=== PATIENT | female | born 1985 | race Caucasian/White ===

== ENCOUNTER 2017-02-15 00:12 | Observation (INO) ==
[2017-02-15] MEDS ORDERED: Acetaminophen 325 MG TABLET PO PRN (02:30)
[2017-02-15] MEDS ORDERED: Ondansetron 4 MG/2 ML VIAL IVP PRN (02:30)
[2017-02-15] MEDS ORDERED: Naloxone 0.4 MG/ML INJ IVP PRN (02:30)
[2017-02-15] MEDS ORDERED: Haloperidol Lactate 5 MG/ML VIAL IVP PRN (02:33)
--- NOTE | 2017-02-15 02:45 | Internal Med History&Physical ---
<Gabe Perez - Last Filed: 02/15/17 03:04> Date of Encounter: 02/15/17 Time of Encounter: 02:35 Assessment and Plan (1) Altered mental status Current visit: No Status: Acute Patient presented with what appeared to be agitation and possibly acute psychosis. Patient has underlying schizophrenia and does not appear to be taking her medications. Etiology of the patient's symptoms likely include her underlying mental disorder exacerbated by amphetamine use as shown in her urine drug screen. Patient was given Haldol, Ativan, and Benadryl in the emergency department which sedated her sufficiently. We will hold off on any further sedating medicines and the patient's mental status can be evaluated. There is reports that she did say that she wanted to commit suicide so suicide precautions have been implemented. Patient will likely need psychiatric evaluation once her mental status and medical condition stabilizes. We will hold off on any further medications at this time until the patient's mental status can be further evaluated. Qualifiers: Altered mental status type: delirium Qualified Code(s): R41.0 - Disorientation, unspecified (2) Pneumonia Current visit: Yes Status: Acute Patient has evidence of bilateral pneumonia on chest x-ray. Unable to assess for symptoms at this time given the patient's mental status as discussed above. We will initiate Levaquin 750 mg daily. Given the history of antipsychotic use and Haldol given in the emergency department there is concern for multiple QT prolongation medications. EKG shows her QT is 393 in the emergency department. We will continue to monitor for any signs of QT prolongation. Qualifiers: Pneumonia type: due to unspecified organism Laterality: bilateral Lung location: unspecified part of lung Qualified Code(s): J18.9 - Pneumonia, unspecified organism (3) Schizophrenia Current visit: Yes Status: Acute Qualifiers: Schizophrenia type: unspecified Qualified Code(s): F20.9 - Schizophrenia, unspecified (4) Amphetamine intoxication Current visit: No Status: Acute Qualifiers: Complication of substance-induced condition: with delirium Qualified Code(s ): F15.121 - Other stimulant abuse with intoxication delirium (5) DVT prophylaxis Current visit: Yes Status: Acute Heparin 5000 units subcutaneous twice a day Internal Medicine - H&P: HPI Chief complaint: Agitation Admitted From: Emergency Dept Plans for Post Hospital Care: Home History of present illness: Ms. Chavez is a 31 year old female with history of schizophrenia and drug abuse presents with agitation. Patient is sedated at this time so history is obtained from the ER documentation. Per the records the mother stated that this evening the patient was shown agitated and running around the house and speaking incoherently. EMS reported that when they arrived the patient was extremely agitated and violent. Per the records the patient did state several times that she wanted to kill herself. Patient was agitated on arrival to the emergency department with constant tangential speech and intermittent violence. Patient was given 5 mg of Haldol, 2 mg of Ativan, 25 mg of diphenhydramine in the emergency department which adequately sedated her. Patient was sedated upon arrival to our facility and would not respond to verbal stimuli. She would make grunting noises and was able to squeeze my hand when asked but otherwise would not follow commands. Past Med Surg Social Fam HX - Past Medical History Medical history: other Psychiatric history: anxiety, depression, previous psychiatric hospitalization - Past Surgical History Surgical History: non-contributory (Unable to obtain in mental status) - Social History Smoking Status: Current every day smoker Smokeless Tobacco Status: No Alcohol use: none Drug use: methamphetamine - Additional Family History Additional family history: Unable to obtain due to mental status Internal Medicine - H&P: Meds Gabapentin [Neurontin] 300 mg PO TID 02/14/17 [History] HydrOXYzine Pamoate [Vistaril] 50 mg PO DAILY 02/14/17 [History] chlorproMAZINE [Thorazine] 50 mg PO HS 02/14/17 [History] Allergies codeine Allergy (Verified 02/14/17 21:49) See Comments haloperidol [From Haldol] Allergy (Verified 02/14/17 21:49) See Comments prednisone Allergy (Verified 02/14/17 21:48) See Comments ROS unobtainable: due to mental status All Systems PM: A 10-system review of systems was performed and is negative for pertinent findings except as documented above in the HPI. - Constitutional Vitals: Temp Pulse Resp BP Pulse Ox 97.7 F 89 20 111/89 98 02/15/17 02:23 02/15/17 02:23 02/15/17 02:23 02/15/17 02:23 02/15/17 02:23 Exam: Patient is sedated this time will not respond to my questions. She does not appear to be in any acute distress. - Head Head exam: Present: atraumatic, normal inspection, normocephalic - Eye Additional comments: Patient would not open her eyes and would not allow me to open her eyes. - ENT Additional comments: Patient would not open her mouth allow me to open her mouth. - Neck Neck exam general surgery: Present: full ROM - Respiratory Respiratory exam: Present: CTAB. Absent: rales, rhonchi, wheezes - Cardiovascular Cardiovascular exam: Present: RRR. Absent: gallop, rubs, systolic murmur, tachycardia - GI/Abdominal GI/Abdominal exam: Present: normal bowel sounds, soft. Absent: distended, tenderness - Extremities Exam Extremities exam: Present: warm. Absent: pedal edema, tenderness - Neurological Exam Additional comments: Patient would not respond to commands or participate in the exam. She would groan and move with verbal stimuli but would not follow commands. She is moving all 4 extremities spontaneously. - Skin Skin exam: Present: dry, intact, warm <Mudduluru,Madhusudha R - Last Filed: 02/15/17 06:33> Date of Encounter: 02/15/17 Assessment and Plan (1) Acute encephalopathy Current visit: Yes Status: Acute Acute Encephalopathy / Psychotic symptoms / agitation / suicidal thought: suspect due to her schizophrenia versus substance abuse. Will obtain psych consult. Suicide, seizure precautions Internal Medicine - H&P: HPI History of present illness: Ms. Chavez is a 31 year old female All Systems PM: A 10-system review of systems was performed and is negative for pertinent findings except as documented above in the HPI. - Constitutional Vitals: Temp Pulse Resp BP Pulse Ox 97.9 F 85 21 100/72 98 02/15/17 03:23 02/15/17 05:49 02/15/17 05:49 02/15/17 05:49 02/15/17 05:49 Internal Med - H&P Results - Labs CBC & Chem 7: 02/15/17 03:02 02/15/17 03:02 Labs: Short CBC 02/15/17 02/15/17 02/15/17 Range/Units 03:02 03:02 03:02 WBC 13.7 H (4.3-11.1) K/mcL RBC 3.46 L (3.82-4.97) M/mcL Hgb 9.9 L D (11.5-15.4) g/dL Hct 30.0 L (35.3-44.9) % MCV 86.7 (83.0-100.0) fL MCH 28.6 (28.0-33.3) pg MCHC 33.0 (31.6-35.5) g/dL RDW 13.0 (11.5-14.5) % Plt Count 258 (140-400) K/mcL MPV 9.7 (9.4-12.4) fL Immature Gran % 0.7 (0-4) % Seg Neutrophils % 66.6 % Lymphocytes % 25.7 % Monocytes % 5.8 % Eosinophils % 0.9 % Basophils % 0.3 % Neutrophils # 9.1 H (1.6-8.9) K/mcL Lymphocytes # 3.5 (0.6-4.6) K/mcL Monocytes # 0.8 (0.0-1.3) K/mcL Eosinophils # 0.1 (0.0-0.6) K/mcL Basophils # 0.0 (0.0-0.2) K/mcL Sodium 140 (136-145) mEq/L Potassium 3.6 (3.5-4.5) mEq/L Chloride 113 H (98-109) mEq/L Carbon Dioxide 22 (19-29) mEq/L BUN 10 (7-20) mg/dL Creatinine 0.77 (0.57-1.11) mg/dL Est GFR ( Amer) > 60 (> 60) Est GFR (Non-Af Amer) > 60 (> 60) BUN/Creatinine Ratio 13 (6-26) Glucose 92 (70-99) mg/dL Calculated Osmolality 289 (280-300) Lactic Acid 0.6 (0.5-2.2) mmol/L Calcium 7.8 L D (8.6-10.8) mg/dL Magnesium 1.6 (1.6-2.6) mg/dL BMP 02/15/17 03:02 Sodium 140 Potassium 3.6 Chloride 113 H Carbon Dioxide 22 BUN 10 Creatinine 0.77 Glucose 92 Calcium 7.8 L D - Attending Attestation I performed history and physical examination of the patient and discussed management with the Resident. I reviewed the Residents note and agree with documented findings and plan of care. 31 Y/F with h/o schizophrenia and drug abuse presented to the ER at [place] with agitation. Patient is sedated at this time and not able to provide history. I have reviewed ER documentation and I also discussed with the report at [place]. Per the ER provider pts mom stated that she (pt) was babbling she was running around the house and she (mom) could not control her. EMS agrees that when they arrived she was extremely agitated and fairly violent talking out of her head. she did say several times that she wanted to kill herself. Patient was given 5 mg of Haldol, 2 mg of Ativan, 25 mg of diphenhydramine in the emergency department. Patient was apparently hypertensive at presentation, but was hypotensive with BP of 84/59 subsequently. She was IV fluid bolus in the ER. CXR reported multifocal bilateral airspace disease compatible with pneumonia. (On my personal review of the CXR - I am not convinced of pneumonia). O/E: Patient is not responsive to verbal stimuli. Maintaining airway. Lungs clear to auscultation. Cardiac regular rate and rhythm. EKG personally reviewed by me shows sinus tachycardia. QTC 392 ms. Labs reviewed and shows white cell count of 17.1. Urine tox screen is positive for amphetamines and benzodiazepines. A/P: Suspected bilateral pneumonia: Treat with levofloxacin. Acute Encephalopathy / Psychotic symptoms / agitation / suicidal thought: suspect due to her schizophrenia versus substance abuse. Will obtain psych consult. Suicide, seizure precautions
[2017-02-15] MEDS: 0.9 % Sodium Chloride 1,000 ML IVC SCH ×3 (02:58→21:39)
[2017-02-15] MEDS ORDERED: *HR* LORazepam 2 MG/ML VIAL IVP PRN ×2 (03:04→06:13)
[2017-02-15 03:18] LABS: Basophils % 0.3 %; Eosinophils # 0.1 K/mcL (0.0-0.6); Eosinophils % 0.9 %; Hemoglobin 9.9 g/dL (11.5-15.4); Immature Granulocytes % 0.7 % (0-4); Lymphocytes # 3.5 K/mcL (0.6-4.6); Lymphocytes % 25.7 %; Mean Corpuscular Hemoglobin 28.6 pg (28.0-33.3); Mean Corpuscular Volume 86.7 fL (83.0-100.0); Mean Platelet Volume 9.7 fL (9.4-12.4); Monocytes # 0.8 K/mcL (0.0-1.3); Monocytes % 5.8 %; Neutrophils # 9.1 K/mcL (1.6-8.9); Platelet Count 258 K/mcL (140-400); Red Blood Count 3.46 M/mcL (3.82-4.97); Segmented Neutrophils % 66.6 %
[2017-02-15 03:36] LABS: BUN/Creatinine Ratio 13 (6-26); Blood Urea Nitrogen 10 mg/dL (7-20); Calcium 7.8 mg/dL (8.6-10.8); Carbon Dioxide 22 mEq/L (19-29); Chloride 113 mEq/L (98-109); Glucose 92 mg/dL (70-99); Magnesium 1.6 mg/dL (1.6-2.6); Osmolality,Calculated 289 (280-300); Potassium 3.6 mEq/L (3.5-4.5); Sodium 140 mEq/L (136-145); eGFR For African Americans > 60 (> 60); eGFR For Non-African Americans > 60 (> 60)
[2017-02-15] MEDS: *HR* Heparin 5,000 UNIT/ML VIAL SQ SCH ×2 (05:19→18:22)
[2017-02-15] MEDS: Levofloxacin 750 MG/150 ML 750 MG/150 ML BAG IVPB SCH (08:23)
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
[2017-02-15] MEDS: Nicotine 21 MG PATCH.TD24 TD SCH (14:46)
[2017-02-15] MEDS ORDERED: Ziprasidone injection 20 MG/ML VIAL IM PRN (16:01)
--- NOTE | 2017-02-15 16:05 | Consult Note ---
Date of Encounter: 02/15/17 Time of Encounter: 15:30 Assessment & Recommendation (1) Drug-induced psychotic disorder Current visit: Yes Status: Acute Assessment & Recommendation: Available information and records support diagnosis of drug-induced psychosis. Regarding patient previous psychiatric history no records are available at this time to review and it would be helpful to obtain these records to review and clarify the diagnosis however at this time I recommended patient to be given Geodon 20 mg by mouth or IM every 6 hours for agitation. She should not be given Haldol which she is listed on her allergy list. Thank you for consultation Qualifiers: Complication of substance-induced condition: with unspecified complication Qualified Code(s): F19.959 - Other psychoactive substance use, unspecified with psychoactive substance-induced psychotic disorder, unspecified History of Present Illness Patient: new to practice Requesting Physician: Gaudencio Porras Reason for consult: Agitation and psychosis History of present illness: Ms. Chavez is a 31 year old female admitted for treatment of agitation and possible intoxication with amphetamine. Psychiatric consultation requested to evaluate psychosis and agitation. Records indicate patient had a mental health history of schizophrenia however there are no records to suppor history or information about her treatment patient herself is uncooperative and sedated and refusing to be interviewed. Patient was given Haldol and Ativan in the emergency room apparently at [facility] [place] hold will Haldol is listed on her allergy list. Patient told me that she did not tolerate the injection that they gave her an the hospital and again I do not have records to verify. Currently she is lying in bed quietly and sleeping. CC: Gaudencio Porras Past Med Surg Social Fam HX - Past Medical History Medical history: other - Past Surgical History Surgical History: non-contributory - Social History Smoking Status: Current every day smoker Smokeless Tobacco Status: No Alcohol use: none Drug use: methamphetamine Medications & Allergies Gabapentin [Neurontin] 300 mg PO BID 02/14/17 [History] HydrOXYzine Pamoate [Vistaril] 25 mg PO BID 02/14/17 [History] chlorproMAZINE [Thorazine] 100 mg PO HS 02/14/17 [History] Albuterol Sulfate [Proair Hfa] 2 puff IH Q4H PRN 02/15/17 [History] Amoxicillin 875 mg PO BID 02/15/17 [History] BuPROPion SR (12 HR) [Wellbutrin SR] 100 mg PO DAILY 02/15/17 [History] Omeprazole [PriLOSEC] 40 mg PO DAILY 02/15/17 [History] Allergies codeine Allergy (Verified 02/14/17 21:49) See Comments haloperidol [From Haldol] Allergy (Verified 02/14/17 21:49) See Comments prednisone Allergy (Verified 02/14/17 21:48) See Comments Mental Status Exam Patient orientation: Yes Person, Yes Place Level of alertness: Sedated Patient appearance: Appropriate, Unkempt, Bizarre Behavior: cooperative, nervous, hostile, suspicious, distractible Psychomotor activity: Slowed Eye contact: Minimal Contact Mood description: Labile, Irritable Affect description: labile, dysphoric Speech pattern: Delayed, Limited Speech volume: Normal Thought process: Tangential, Slowed Thinking Thought content: No Suicidal ideation, No Homicidal ideation, No Overt delusions Perceptual disturbances: No Auditory hallucinations, No Visual hallucinations Attention span: Unable to Focus Memory description: Immediate Impaired, Remote Impaired Patient reliability: Not Reliable Historian Intelligence estimate: Average Judgment: Limited Insight: Partial Results - Vital Signs Vital signs: Temp Pulse Resp BP Pulse Ox 98.3 F 78 14 97/68 98 02/15/17 14:48 02/15/17 14:48 02/15/17 14:48 02/15/17 14:48 02/15/17 14:48 - Labs Labs: Laboratory Last Values WBC 13.7 K/mcL (4.3-11.1) H 02/15/17 03:02 RBC 3.46 M/mcL (3.82-4.97) L 02/15/17 03:02 Hgb 9.9 g/dL (11.5-15.4) L D 02/15/17 03:02 Hct 30.0 % (35.3-44.9) L 02/15/17 03:02 MCV 86.7 fL (83.0-100.0) 02/15/17 03:02 MCH 28.6 pg (28.0-33.3) 02/15/17 03:02 MCHC 33.0 g/dL (31.6-35.5) 02/15/17 03:02 RDW 13.0 % (11.5-14.5) 02/15/17 03:02 Plt Count 258 K/mcL (140-400) 02/15/17 03:02 MPV 9.7 fL (9.4-12.4) 02/15/17 03:02 Immature Gran % 0.7 % (0-4) 02/15/17 03:02 Seg Neutrophils % 66.6 % 02/15/17 03:02 Lymphocytes % 25.7 % 02/15/17 03:02 Monocytes % 5.8 % 02/15/17 03:02 Eosinophils % 0.9 % 02/15/17 03:02 Basophils % 0.3 % 02/15/17 03:02 Neutrophils # 9.1 K/mcL (1.6-8.9) H 02/15/17 03:02 Lymphocytes # 3.5 K/mcL (0.6-4.6) 02/15/17 03:02 Monocytes # 0.8 K/mcL (0.0-1.3) 02/15/17 03:02 Eosinophils # 0.1 K/mcL (0.0-0.6) 02/15/17 03:02 Basophils # 0.0 K/mcL (0.0-0.2) 02/15/17 03:02 Sodium 140 mEq/L (136-145) 02/15/17 03:02 Potassium 3.6 mEq/L (3.5-4.5) 02/15/17 03:02 Chloride 113 mEq/L (98-109) H 02/15/17 03:02 Carbon Dioxide 22 mEq/L (19-29) 02/15/17 03:02 BUN 10 mg/dL (7-20) 02/15/17 03:02 Creatinine 0.77 mg/dL (0.57-1.11) 02/15/17 03:02 Est GFR ( Amer) > 60 (> 60) 02/15/17 03:02 Est GFR (Non-Af Amer) > 60 (> 60) 02/15/17 03:02 BUN/Creatinine Ratio 13 (6-26) 02/15/17 03:02 Glucose 92 mg/dL (70-99) 02/15/17 03:02 Calculated Osmolality 289 (280-300) 02/15/17 03:02 Lactic Acid 0.6 mmol/L (0.5-2.2) 02/15/17 03:02 Calcium 7.8 mg/dL (8.6-10.8) L D 02/15/17 03:02 Magnesium 1.6 mg/dL (1.6-2.6) 02/15/17 03:02 - Impressions Impressions Chest X-Ray 02/15/17 06:26 IMPRESSION: Improving areas of lung consolidation. D/ / Billy Griffin MD / Billy Griffin MD Interpreting Provider: Billy Griffin MD Consult Discharge Plan - Plan Referrals: NO,PCP [Primary Care Provider] -
[2017-02-16 04:46] LABS: Basophils % 0.3 %; Eosinophils # 0.2 K/mcL (0.0-0.6); Eosinophils % 2.5 %; Hematocrit 32.6 % (35.3-44.9); Hemoglobin 10.9 g/dL (11.5-15.4); Immature Granulocytes % 0.3 % (0-4); Lymphocytes # 3.3 K/mcL (0.6-4.6); Lymphocytes % 36.1 %; Mean Corpuscular HGB Conc 33.4 g/dL (31.6-35.5); Mean Corpuscular Volume 86.7 fL (83.0-100.0); Mean Platelet Volume 10.8 fL (9.4-12.4); Monocytes # 0.7 K/mcL (0.0-1.3); Monocytes % 7.4 %; Neutrophils # 4.9 K/mcL (1.6-8.9); Platelet Count 291 K/mcL (140-400); Red Blood Count 3.76 M/mcL (3.82-4.97); Red Cell Distribution Width 13.2 % (11.5-14.5); Segmented Neutrophils % 53.4 %
[2017-02-16 05:14] LABS: Alanine Aminotransferase 8 Units/L (0-55); Albumin 2.9 g/dL (3.5-5.0); Alkaline Phosphatase 63 Units/L (38-126); Aspartate Amino Transferase 15 Units/L (5-34); BUN/Creatinine Ratio 14 (6-26); Bilirubin,Total 0.3 mg/dL (0.2-1.2); Blood Urea Nitrogen 12 mg/dL (7-20); Calcium 8.6 mg/dL (8.6-10.8); Carbon Dioxide 23 mEq/L (19-29); Chloride 111 mEq/L (98-109); Glucose 82 mg/dL (70-99); Osmolality,Calculated 291 (280-300); Potassium 3.8 mEq/L (3.5-4.5); Sodium 141 mEq/L (136-145); Total Protein 5.9 g/dL (6.0-8.3); eGFR For African Americans > 60 (> 60); eGFR For Non-African Americans > 60 (> 60)
[2017-02-16] MEDS: 0.9 % Sodium Chloride 1,000 ML IVC SCH ×2 (05:20→14:54)
[2017-02-16] MEDS: *HR* Heparin 5,000 UNIT/ML VIAL SQ SCH ×2 (05:52→17:26)
[2017-02-16] MEDS: Nicotine 21 MG PATCH.TD24 TD SCH (08:36)
[2017-02-16] MEDS: Levofloxacin 750 MG/150 ML 750 MG/150 ML BAG IVPB SCH (08:37)
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
[2017-02-16] MEDS: Gabapentin 300 MG CAPSULE PO SCH (21:37)
[2017-02-17 04:13] LABS: Basophils % 0.2 %; Eosinophils # 0.3 K/mcL (0.0-0.6); Eosinophils % 2.7 %; Hematocrit 33.3 % (35.3-44.9); Hemoglobin 11.4 g/dL (11.5-15.4); Immature Granulocytes % 0.3 % (0-4); Lymphocytes # 3.9 K/mcL (0.6-4.6); Lymphocytes % 39.2 %; Mean Corpuscular HGB Conc 34.2 g/dL (31.6-35.5); Mean Corpuscular Hemoglobin 29.1 pg (28.0-33.3); Mean Corpuscular Volume 84.9 fL (83.0-100.0); Mean Platelet Volume 10.4 fL (9.4-12.4); Monocytes # 0.7 K/mcL (0.0-1.3); Monocytes % 6.6 %; Platelet Count 281 K/mcL (140-400); Red Blood Count 3.92 M/mcL (3.82-4.97); Red Cell Distribution Width 13.2 % (11.5-14.5)
[2017-02-17 04:28] LABS: Alanine Aminotransferase 7 Units/L (0-55); Albumin/Globulin Ratio 0.9 (1.1-2.2); Alkaline Phosphatase 68 Units/L (38-126); Aspartate Amino Transferase 13 Units/L (5-34); BUN/Creatinine Ratio 9 (6-26); Bilirubin,Total 0.2 mg/dL (0.2-1.2); Blood Urea Nitrogen 7 mg/dL (7-20); Calcium 8.7 mg/dL (8.6-10.8); Carbon Dioxide 24 mEq/L (19-29); Chloride 108 mEq/L (98-109); Globulin 3.2 g/dL (2.4-3.5); Glucose 80 mg/dL (70-99); Osmolality,Calculated 287 (280-300); Sodium 140 mEq/L (136-145); Total Protein 6.2 g/dL (6.0-8.3); eGFR For African Americans > 60 (> 60); eGFR For Non-African Americans > 60 (> 60)
[2017-02-17] MEDS: *HR* Heparin 5,000 UNIT/ML VIAL SQ SCH (05:40)
[2017-02-17 07:11] VITALS: BP 107/70
[2017-02-17] MEDS: Nicotine 21 MG PATCH.TD24 TD SCH (11:14)
[2017-02-17] MEDS: Gabapentin 300 MG CAPSULE PO SCH (11:15)
[2017-02-17] MEDS: Levofloxacin 750 MG/150 ML 750 MG/150 ML BAG IVPB SCH (11:22)
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
== END 2017-02-17 15:30 | disposition home or self-care (01) ==
LOC: ICNU 01:54 → INTOOBSV 01:54 → 2NENU 14:26
PROVIDERS: ADMIT Internal Medicine; ATTEND Internal Medicine

== ENCOUNTER 2017-11-30 11:34 | Observation (INO) ==
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
[2017-11-30] MEDS ORDERED: Haloperidol Lactate 5 MG/ML VIAL ONE (12:16)
[2017-11-30] MEDS ORDERED: *HR* LORazepam 2 MG/ML VIAL ONE (12:16)
[2017-11-30 12:19] LABS: Basophils % 0.2 %; Hematocrit 35.7 % (35.3-44.9); Immature Granulocytes % 0.7 % (0-4); Lymphocytes # 3.1 K/mcL (0.6-4.6); Mean Corpuscular HGB Conc 33.6 g/dL (31.6-35.5); Mean Corpuscular Hemoglobin 28.1 pg (28.0-33.3); Mean Corpuscular Volume 83.6 fL (83.0-100.0); Mean Platelet Volume 10.3 fL (9.4-12.4); Monocytes # 1.7 K/mcL (0.0-1.3); Monocytes % 7.9 %; Platelet Count 337 K/mcL (140-400); Red Blood Count 4.27 M/mcL (3.82-4.97); Red Cell Distribution Width 12.6 % (11.5-14.5); Segmented Neutrophils % 77.2 %
[2017-11-30] MEDS ORDERED: *HR* LORazepam 2 MG/ML VIAL IVP ONE (12:23)
[2017-11-30] MEDS ORDERED: Haloperidol Lactate 5 MG/ML VIAL IM ONE (12:23)
[2017-11-30 12:37] LABS: Alanine Aminotransferase 30 Units/L (7-52); Albumin 4.4 g/dL (3.5-5.7); Albumin/Globulin Ratio 1.5 (1.1-2.2); Alkaline Phosphatase 86 Units/L (34-104); Aspartate Amino Transferase 81 Units/L (13-39); BUN/Creatinine Ratio 33 (6-26); Bilirubin,Direct 0.2 mg/dL (0.0-0.2); Bilirubin,Indirect 0.7 mg/dL (0.0-1.2); Bilirubin,Total 0.9 mg/dL (0.3-1.0); Blood Urea Nitrogen 29 mg/dL (6-20); Calcium 9.9 mg/dL (8.6-10.3); Carbon Dioxide 26 mEq/L (23-29); Chloride 102 mEq/L (98-107); Glucose 94 mg/dL (70-105); Osmolality,Calculated 288 (280-300); Potassium 3.5 mEq/L (3.5-5.1); Sodium 136 mEq/L (136-145); Total Protein 7.4 g/dL (6.4-8.9); eGFR For African Americans > 60 (> 60); eGFR For Non-African Americans > 60 (> 60)
[2017-11-30 12:55] LABS: Acetaminophen < 1.0 mcg/mL (10-30); Ethanol < 10 mg/dL (0-10); Salicylate < 5.0 mg/dL (15.0-30.0)
[2017-11-30 13:20] LABS: Bilirubin,Urine Small (Negative); Blood,Urine Large (Negative); Clarity,Urine Cloudy (Clear); Color,Urine Red (Yellow); Glucose,Urine (UA) Normal (Normal); Ketones,Urine 40 mg/dL (Negative); Leukocyte Esterase,Urine Small (Negative); Nitrite,Urine Positive (Negative); PH,Urine 5.5 pH Units (5.0-8.0); Protein,Urine 100 mg/dL (Neg-Trace); Specific Gravity,Urine 1.028 (1.010-1.025); Urobilinogen,Urine Normal (Normal)
[2017-11-30 13:27] LABS: Amphetamine Screen,Urine Positive ng/mL (Cutoff=1000); Barbiturate Screen,Urine Negative ng/mL (Cutoff=200); Benzodiazepines Screen,Urine Negative ng/mL (Cutoff=200); Cannabinoid Screen,Urine Negative ng/mL (Cutoff = 50); Cocaine Screen,Urine Positive ng/mL (Cutoff= 300); Opiate Screen,Urine Negative ng/mL (Cutoff=300); Phencyclidine Screen,Urine Negative ng/mL (Cutoff=25)
[2017-11-30] MEDS ORDERED: cefTRIAXone 1,000 MG in Water for inj. (sterile) 20 ML 10 ML IVP ONE (14:08)
[2017-11-30] MEDS ORDERED: Naloxone 0.4 MG/ML INJ IVP PRN (14:34)
--- NOTE | 2017-11-30 14:40 | Internal Med History&Physical ---
<Gene Gimenez - Last Filed: 11/30/17 14:36> Date of Encounter: 11/30/17 Time of Encounter: 14:36 Assessment and Plan (1) Toxic encephalopathy Current visit: Yes Status: Acute Secondary to polysubstance abuse. Urine toxicology positive for Methamphetamines and Cocaine She presents today with AMS, paranoia, agitation, and hallucinations She required Ativan and Haldol while in the ED d/t agitation and hallucinations -CT head -Consult to psychology-spoke with 1A nurse who states that they will inform the psychologist of the consult -One-on-one sitter -Haldol 1mg IV Q6 prn for delerium (2) UTI (urinary tract infection) Current visit: Yes Status: Acute UTI found on UA with large hematuria, positive nitrates and small leukocyte esterase and a WBC of 22 Patient is altered LOC and I am unable to assess whether or not she has any dysuria or CVA tenderness -CT of abdomen and pelvis to to UTI with hematuria to rule out stone -Rocephin 1 g IV daily -0.9% normal saline at 100 mL per hour -CBC D/BMP in the morning Qualifiers: Urinary tract infection type: site unspecified Hematuria presence: with hematuria Qualified Code(s): N39.0 - Urinary tract infection, site not specified; R31.9 - Hematuria, unspecified; R31.9 - Hematuria, unspecified (3) Drug-induced psychotic disorder Current visit: Yes Status: Acute Presents today with alteration in mental status including agitation, hallucinations and paranoia Toxicology found methamphetamines and cocaine which is likely the cause. She also has a UTI which can account for some of the confusion It is unclear at this time if she has also ingested hallucinogens or if there is some underlying psychosis Qualifiers: Complication of substance-induced condition: with hallucinations Qualified Code(s): F19.951 - Other psychoactive substance use, unspecified with psychoactive substance-induced psychotic disorder with hallucinations (4) Altered mental status Current visit: Yes Status: Acute Qualifiers: Altered mental status type: unspecified Qualified Code(s): R41.82 - Altered mental status, unspecified (5) Altered level of consciousness Current visit: Yes Status: Acute Secondary to drug induced psychosis, and Ativan and Haldol which were given in the ED d/t psychosis, agitation, hallucinations and paranoia see plan above (6) Polysubstance abuse Current visit: Yes Status: Acute (7) Methamphetamine abuse Current visit: Yes Status: Acute (8) Cocaine abuse Current visit: Yes Status: Acute (9) DVT prophylaxis Current visit: Yes Status: Acute Early ambulation Internal Medicine - H&P: HPI Chief complaint: Hallucinations, suspected drug overdose, UTI Admitted From: Home Plans for Post Hospital Care: Home History of present illness: Ms. Chavez is a 32 year old female with a PMH of prior suicide attempts, polysubstance abuse, anxiety, and depression. She presents to [facility] today after being released from assisted. The patient currently has an altered LOC from ativan and Haldol which was given in the ED d/t agitation and hallucinations. All information obtained from chart review and ED RN who reports that she was released from assisted this morning and was confused, paranoid, agitated and hallucinating. She reported that she last used drugs last night. Her toxicology report found methamphetamine and cocaine use. However, it is difficult to determine if she was also using hallucinogens or if she is currently having psychosis. Her urine also found large blood, and luekocyte esterase positive for UTI. She will need to be admitted for observation for suspected drug overdose, altered LOC and UTI Past Med Surg Social Fam HX - Past Medical History Medical history: other Psychiatric history: anxiety, depression, previous psychiatric hospitalization - Past Surgical History Surgical History: non-contributory - Social History Smoking Status: Current every day smoker Smokeless Tobacco Status: No Alcohol use: none Drug use: methamphetamine - Additional Family History Additional family history: noncontributory Internal Medicine - H&P: Meds No Known Home Drugs 11/30/17 [History] 3 Allergy/AdvReac Type Severity Reaction Status Date / Time codeine Allergy See Verified 02/14/17 21:49 Comments prednisone Allergy See Verified 02/14/17 21:48 Comments ROS unobtainable: due to mental status All Systems PM: A 10-system review of systems was performed and is negative for pertinent findings except as documented above in the HPI. - Constitutional Vitals: Temp Pulse Resp BP Pulse Ox 97.8 F 98 14 118/79 100 11/30/17 11:40 11/30/17 14:33 11/30/17 14:33 11/30/17 14:33 11/30/17 14:33 General appearance: Present: cooperative, A&O X 3, no acute distress, answers questions appropriately - Head Head exam: Present: atraumatic, normocephalic - Eye Pupils: Present: PERRL - Neck Neck exam general surgery: Present: supple, trachea midline. Absent: lymphadenopathy - Respiratory Respiratory exam: Present: CTAB. Absent: accessory muscle use, rales, rhonchi, wheezes - Cardiovascular Cardiovascular exam: Present: RRR, +S1, +S2. Absent: diastolic murmur, gallop, rubs, systolic murmur - GI/Abdominal GI/Abdominal exam: Present: normal bowel sounds, soft, no peritoneal signs. Absent: distended, tenderness - Extremities Exam Extremities exam: Present: warm, radial pulses palpable and symmetrical. Absent : calf tenderness, cyanotic, pedal edema - Neurological Exam Neurological exam: Present: altered (LOC; decreased LOC following a 2mg Ativan and 5mg Haldol dose) - Skin Skin exam: Present: dry, intact Additional comments: Generalized bruising in various stages of healing throught arms and legs Internal Med - H&P Results - Labs CBC & Chem 7: 11/30/17 11:57 11/30/17 11:57 - EKG Data EKG shows normal: sinus rhythm Rate: tachycardia <Thallamatheweni,Rambabu - Last Filed: 11/30/17 18:25> Date of Encounter: 11/30/17 Internal Medicine - H&P: HPI History of present illness: Ms. Chavez is a 32 year old female All Systems PM: A 10-system review of systems was performed and is negative for pertinent findings except as documented above in the HPI. - Constitutional Vitals: Temp Pulse Resp BP Pulse Ox 98.9 F 97 15 121/75 99 11/30/17 15:42 11/30/17 15:42 11/30/17 15:42 11/30/17 15:42 11/30/17 15:42 Internal Med - H&P Results - Labs CBC & Chem 7: 11/30/17 11:57 11/30/17 11:57 - Attending Attestation I have personally performed a face to face evaluation on this patient. I have reviewed and agree with the care plan provided by IGNACIA Gimenez. History and Exam by me shows: Ms. Chavez is a 32 year old female with a PMH of prior suicide attempts, polysubstance abuse, anxiety, and depression presented to ER with hallucinations and delirium. Pt is currently still confused unable to provide me any history. Noticed multiple bruises all over the body. All information obtained from chart review and ED RN who reports that she was released from assisted this morning and was confused, paranoid, agitated and hallucinating. Gen: Semi sleepy.. Confused / agitated Chest: Diminished BS Heart: S1S2+ a/p 1. Acute pychosis 2. Acute toxic encephalopathy 3. Acute delirium On Tele Haldol PRN Psych consult IV hydration Reviewed CT of head showed no acute intra cranial pathology , however she does have some retropharyngeal emphysema but pt refused to go for CT of Chest for further eval
[2017-11-30] MEDS ORDERED: Haloperidol Lactate 5 MG/ML VIAL IVP PRN (14:59)
[2017-11-30] MEDS: 0.9 % Sodium Chloride 1,000 ML IVC SCH (15:50)
--- NOTE | 2017-11-30 21:32 | Event Note ---
Date of Encounter: 11/30/17 Time of Encounter: 21:[address] CT of chest d/t concerning finding on the CT head of Retropharyngeal emphysema, which is of uncertain etiology. She has been refusing the CT of chest since this afternoon. Multiple attempts have been made to convince the patient of the need for the CT chest including explaining the the finding are very concerning and depending on the results could be emergent. She still refused. I have again spoken with her at this time at 2130 and she has finally agreed to the CT chest.
[2017-12-01] MEDS: 0.9 % Sodium Chloride 1,000 ML IVC SCH ×2 (02:35→13:59)
[2017-12-01 05:24] LABS: Basophils # 0.1 K/mcL (0.0-0.2); Basophils % 0.4 %; Eosinophils # 0.2 K/mcL (0.0-0.6); Eosinophils % 1.4 %; Hematocrit 33.3 % (35.3-44.9); Immature Granulocytes % 0.7 % (0-4); Lymphocytes % 25.3 %; Mean Corpuscular Volume 84.7 fL (83.0-100.0); Mean Platelet Volume 10.4 fL (9.4-12.4); Monocytes # 0.9 K/mcL (0.0-1.3); Monocytes % 7.3 %; Neutrophils # 7.6 K/mcL (1.6-8.9); Platelet Count 284 K/mcL (140-400); Red Blood Count 3.93 M/mcL (3.82-4.97); Red Cell Distribution Width 13.1 % (11.5-14.5); Segmented Neutrophils % 64.9 %
[2017-12-01 05:28] LABS: BUN/Creatinine Ratio 47 (6-26); Blood Urea Nitrogen 32 mg/dL (6-20); Calcium 8.5 mg/dL (8.6-10.3); Carbon Dioxide 21 mEq/L (23-29); Chloride 103 mEq/L (98-107); Glucose 75 mg/dL (70-105); Osmolality,Calculated 286 (280-300); Potassium 2.9 mEq/L (3.5-5.1); Sodium 135 mEq/L (136-145); eGFR For African Americans > 60 (> 60); eGFR For Non-African Americans > 60 (> 60)
[2017-12-01] MEDS: cefTRIAXone 1,000 MG in Water for inj. (sterile) 20 ML 10 ML IVP SCH (08:18)
--- NOTE | 2017-12-01 11:55 | Internal Med Progress Note ---
Date of Encounter: 12/01/17 Time of Encounter: 11:55 - Assessment and plan (1) Pneumomediastinum Current Visit: Yes Status: Acute Assessment and plan: head CT showed a retropharyngeal emphysema and a CT of chest was recommended. Patient initially refused CT however she eventually did agree. Chest CT showed pneumomediastinum as well as emphysema within the fascial planes of the lower neck. Hemodynamically stable, does not appear acute or toxic. Pneumomediastinum possibly secondary to inhalation of methamphetamines; patient admitted to smoking crystal meth 2-3 days ago. Pulmonology consulted. (2) Acute encephalopathy Current Visit: No Status: Acute Assessment and plan: presented with paranoia, agitation, and hallucinations. Head CT nonacute. UA indicative of UTI as noted below. Suspect drug induced as UDS is positive for methamphetamines and cocaine. Mentation appears significantly improved on exam. Supportive care for now. Monitor mental status. The further workup indicated at this time (3) Drug-induced psychotic disorder Current Visit: Yes Status: Acute Assessment and plan: presented with alteration in mental status including agitation, hallucinations and paranoia. Suspect secondary to methamphetamine and cocaine use. Symptoms appear resolved on recent 06/12 exam. Continue one-to-one sitter, psychiatry consulted Qualifiers: Complication of substance-induced condition: with hallucinations Qualified Code(s): F19.951 - Other psychoactive substance use, unspecified with psychoactive substance-induced psychotic disorder with hallucinations (4) Polysubstance abuse Current Visit: Yes Status: Acute Assessment and plan: Known history of drug abuse. UDS positive for cocaine, methamphetamines. Cessation advised but unlikely. (5) UTI (urinary tract infection) Current Visit: Yes Status: Acute Assessment and plan: UTI found on UA with large hematuria, positive nitrates and small leukocyte esterase. Cont IV ceftriaxone. Narrow according to urine culture. Qualifiers: Urinary tract infection type: site unspecified Hematuria presence: with hematuria Qualified Code(s): N39.0 - Urinary tract infection, site not specified; R31.9 - Hematuria, unspecified; R31.9 - Hematuria, unspecified (6) Hypokalemia Current Visit: Yes Status: Acute Assessment and plan: K dropped to 2.9; PO and IV replacement ordered. Repeat K leval at 1700 and in am. Mg pending (7) DVT prophylaxis Current Visit: Yes Status: Acute Assessment and plan: heparin - Subjective Interval history: Seen and examined at bedside. Patient is new to me, information obtained from chart review and patient report although patient is not very cooperative with exam and does not provide much detail. Not feel well and she wants to be left alone. Says she is tired and no one will let her sleep. She reports some shortness of breath but does not elaborate. Denies chest pain. She admits to smoking methamphetamine 2-3 days ago. - Constitutional Vitals: Temp Pulse Resp BP Pulse Ox 98.8 F 98 16 105/64 98 12/01/17 11:09 12/01/17 11:09 12/01/17 11:09 12/01/17 11:12/01/17 11:09 General appearance: Present: cooperative, disheveled, A&O X 3, no acute distress , answers questions appropriately - Head Head exam: Present: atraumatic, normocephalic - Eye Eye exam: Present: PERRL, conjuntiva pink, sclera anicteric Pupils: Present: PERRL - Neck Neck exam general surgery: Present: supple, trachea midline. Absent: lymphadenopathy - Respiratory Respiratory exam: Present: CTAB. Absent: accessory muscle use, rales, rhonchi, wheezes - Cardiovascular Cardiovascular exam: Present: RRR, +S1, +S2. Absent: diastolic murmur, gallop, rubs, systolic murmur - GI/Abdominal GI/Abdominal exam: Present: normal bowel sounds, soft, no peritoneal signs. Absent: distended, tenderness - Extremities Exam Extremities exam: Present: warm, radial pulses palpable and symmetrical. Absent : calf tenderness, cyanotic, pedal edema - Neurological Exam Neurological exam: Present: CN II-XII intact, oriented X3, no focal deficits. Absent: pronater drift, facial droop, speech deficit - Skin Skin exam: Present: dry, intact Internal Medicine: Result - Labs CBC & Chem 7: 12/01/17 04:34 12/01/17 04:34 Labs: Short CBC 12/01/17 Range/Units 04:34 WBC 11.7 H (4.3-11.1) K/mcL Hgb 11.0 L (11.5-15.4) g/dL Hct 33.3 L (35.3-44.9) % Plt Count 284 (140-400) K/mcL Neutrophils # 7.6 (1.6-8.9) K/mcL BMP 12/01/17 04:34 Sodium 135 L Potassium 2.9 L Chloride 103 Carbon Dioxide 21 L BUN 32 H Creatinine 0.68 Glucose 75 Calcium 8.5 L - Impressions Impressions Chest CT 11/30/17 16:11 IMPRESSION: Pneumomediastinum as well as emphysema within the fascia planes of the visualized lower neck. Scratch Bilateral upper lung predominant anterior peripheral alveolar infiltrates, nonspecific. D/ / Lavinia Duran Cha, MD / Lavinia Duran Cha, MD Interpreting Provider: Lavinia Duran Cha, MD Chest X-Ray 12/01/17 06:00 IMPRESSION: Trace pneumomediastinum adjacent to the aortic arch. Clear lungs. D/ / Gorge Steele MD / Gorge Steele MD Interpreting Provider: Gorge Steele MD Consult Discharge Plan - Plan
--- NOTE | 2017-12-01 12:57 | Pulmonology Consult Note ---
Date of Encounter: 12/01/17 Time of Encounter: 12:00 Assessment and Plan (1) Pneumomediastinum Current Visit: Yes Status: Acute Patient looks like she did a Valsalva maneuver to get high , usually that is the mechanism of pneumomediastinum which is very common crack cocaine users . Will monitor there is no evidence of mediastinal collection or any mediastinitis if it is the latter patient will be more sicker . Will monitor overnight for symptoms worsening like shortness breadth and chest pain . There is some evidence of some emphysema in the neck doubt she was vein popping around the neck . No evidence of pneumothorax will follow tomorrow (2) Small airways disease Current Visit: Yes Status: Chronic Patient CT chest was reviewed the lung parenchyma shows lot of air trapping in the centrilobular area concern for early signs of COPD . Counseled about cessation of smoking drugs . Patient will need inpatient rehab she has high chance of drug overdose because of psychotic disorder . (3) Methamphetamine abuse Current Visit: Yes Status: Acute Patient will need inpatient rehab she has high risk of dying due to future overdoses . History of Present Illness Consult date: 12/01/17 Requesting physician: Carmelita Barnett Reason for consult: abnormal CXR/CT Chief complaint: Altered mental status History of present illness: 32 year old female with past medical history significant for polysubstance abuse , psychotic disorder , comes with methamphetamine and cocaine intoxication work up with CXR showed pneumomediastinum with CHEST CT showed some some subcutaneous emphysema in the neck with some pneumomediastinum pulmonary was consulted for pneumomediastinum , patient says she was smoking methamphetmaine and cocaine says she was sober for a while but she started back again , patient started to have agitation and psychosis , patient denies any cough and sputum production , denies any wheezing , denies any fever or chills , denies chest pain or tightness , denies any palpitations or syncope , denies any abdominal symptoms , but looks depressed avoids eye contact , not cooperative for exam . Pulmonary was consulted for evaluation of pneumomediastinum . Past Med Surg Social Fam HX - Past Medical History Medical history: other Psychiatric history: anxiety, depression, previous psychiatric hospitalization - Past Surgical History Surgical History: non-contributory - Social History Smoking Status: Current every day smoker Smokeless Tobacco Status: No Alcohol use: none Drug use: methamphetamine - Family History Mother History Unknown: Yes Father History Unknown: Yes Medications and Allergies No Known Home Drugs 11/30/17 [History] 3 Allergy/AdvReac Type Severity Reaction Status Date / Time codeine Allergy See Verified 02/14/17 21:49 Comments prednisone Allergy See Verified 02/14/17 21:48 Comments All Systems: The remainder of the systems were reviewed and are negative Physical Examination Vital Signs: Vital Signs, Last 4 Hours Temp Pulse Resp BP Pulse Ox 12/01/17 11:09 98.8 F 98 16 105/64 98 Auscultation: bilateral: clear Results - Laboratory Findings CBC and BMP: 12/01/17 04:34 12/01/17 17:10 Abnormal lab findings: Abnormal lab results WBC 11.7 K/mcL (4.3-11.1) H 12/01/17 04:34 Hgb 11.0 g/dL (11.5-15.4) L 12/01/17 04:34 Hct 33.3 % (35.3-44.9) L 12/01/17 04:34 Sodium 135 mEq/L (136-145) L 12/01/17 04:34 Potassium 2.9 mEq/L (3.5-5.1) L 12/01/17 04:34 Carbon Dioxide 21 mEq/L (23-29) L 12/01/17 04:34 BUN 32 mg/dL (6-20) H 12/01/17 04:34 BUN/Creatinine Ratio 47 (6-26) H 12/01/17 04:34 Calcium 8.5 mg/dL (8.6-10.3) L 12/01/17 04:34 AST 81 Units/L (13-39) H 11/30/17 11:57 Ur Specimen Adequacy See below A 11/30/17 12:59 Urine Color Red (Yellow) A 11/30/17 12:59 Urine Clarity Cloudy (Clear) A 11/30/17 12:59 Ur Specific [place] 1.028 (1.010-1.025) H 11/30/17 12:59 Urine Protein 100 mg/dL (Neg-Trace) H 11/30/17 12:59 Urine Ketones 40 mg/dL (Negative) H 11/30/17 12:59 Urine Blood Large (Negative) H 11/30/17 12:59 Urine Nitrite Positive (Negative) A 11/30/17 12:59 Urine Bilirubin Small (Negative) H 11/30/17 12:59 Ur Leukocyte Esterase Small (Negative) H 11/30/17 12:59 Salicylates < 5.0 mg/dL (15.0-30.0) L 11/30/17 11:57 Acetaminophen < 1.0 mcg/mL (10-30) L 11/30/17 11:57 Ur Amphetamines Screen Positive ng/mL (Eespkq=[id number]) H 11/30/17 13:07 Urine Cocaine Screen Positive ng/mL (Cutoff= 300) H 11/30/17 13:07 - Clinical Findings Intake & Output: Intake & Output 11/30/17 12/01/17 12/01/17 23:59 07:59 15:59 Intake Total 1000 / 1000 100 / 100 Balance 1000 / 1000 100 / 100 Weight 57.243 kg Consult Discharge Plan - Plan Referrals: NONE,PCP [Primary Care Provider] -
--- NOTE | 2017-12-01 13:21 | Consult Note ---
Date of Encounter: 12/01/17 Time of Encounter: 12:55 Assessment & Recommendation (1) Drug-induced psychotic disorder Current visit: Yes Status: Acute Qualifiers: Complication of substance-induced condition: with hallucinations Qualified Code(s): F19.951 - Other psychoactive substance use, unspecified with psychoactive substance-induced psychotic disorder with hallucinations (2) Drug-induced mood disorder Current visit: Yes Status: Acute Assessment & Recommendation: will start wellbutrin sr 100 mg am for her mild depression. (3) Methamphetamine abuse Current visit: Yes Status: Acute (4) Cocaine abuse Current visit: Yes Status: Acute History of Present Illness Patient: new to practice Requesting Physician: Carmelita Barnett CNP Reason for consult: polysubstance abuse, hallucinations and paranoia and agitation. History of present illness: Ms. Chavez is a 32 year old female consultef fpor psychosis, agitation and poly substance use. Seen and examined at bedside. Patient is new to or, information obtained from chart review and patient report although patient is not very cooperative with exam but able to give some history , she was consulted in 02/08 for same reason , poly substance use and agitation. records indicaate patient had mental history of schizophrenia however there is no records to support history or information about her treatment. she states she has been treated in past but does not remember and has mutiple times suicidal ideation, she denies any si/hi at present. she is irritable, edgy and at times uncooperatibve, states got in argument with her grand father and she called the law and they bought her here , she has been using cocain and meth , denies i/v use. she has been non compliant with her treatment and is on disability. she feels depress , sad , and tired and fatigue as withdrawing from methamphetamine . A/P Substance induced psychosis. substance induced mood disorder polysubstance dependence. Plan patient needs inpatient rehab if she agrees. out patient psychiatric follow up for medication and counselling. she is not in imenent danger to self/others at present . she had been on wellbutrin in past. can start wellbutrin sr 100 mg am thorazine 50 mg hs. thank you for consult . CC: Carmelita Barnett CNP Past Med Surg Social Fam HX - Past Medical History Medical history: other - Past Psychiatric History Psychiatric history: Reports: anxiety, depression Family psychiatric history: Unknown Family History of Suicide: Unknown - Past Surgical History Surgical History: non-contributory - Social History Smoking Status: Current every day smoker Smokeless Tobacco Status: No Alcohol use: none Drug use: methamphetamine - Family History Mother History Unknown: Yes Father History Unknown: Yes Medications & Allergies No Known Home Drugs 11/30/17 [History] 3 Allergy/AdvReac Type Severity Reaction Status Date / Time codeine Allergy See Verified 02/14/17 21:49 Comments prednisone Allergy See Verified 02/14/17 21:48 Comments Review of Systems Psychiatric: Reports: depression, abnormal sleep pattern, auditory hallucinations Mental Status Exam Patient orientation: Yes Person, Yes Place Level of alertness: Sedated Patient appearance: Appropriate Behavior: anxious Psychomotor activity: Normal Eye contact: Minimal Contact Mood description: Depressed, Anxious Affect description: congruent with mood Speech pattern: Normal rate Speech volume: Normal Thought process: Intact Perceptual disturbances: Yes Auditory hallucinations Attention span: Unable to Sustain Attention Patient reliability: Questionable Historian Intelligence estimate: Average Judgment: Fair Insight: Minimal Results - Vital Signs Vital signs: Temp Pulse Resp BP Pulse Ox 98.8 F 98 16 105/64 98 12/01/17 11:09 12/01/17 11:09 12/01/17 11:09 12/01/17 11:09 12/01/17 11:09 - Labs Labs: Laboratory Last Values WBC 11.7 K/mcL (4.3-11.1) H 12/01/17 04:34 RBC 3.93 M/mcL (3.82-4.97) 12/01/17 04:34 Hgb 11.0 g/dL (11.5-15.4) L 12/01/17 04:34 Hct 33.3 % (35.3-44.9) L 12/01/17 04:34 MCV 84.7 fL (83.0-100.0) 12/01/17 04:34 MCH 28.0 pg (28.0-33.3) 12/01/17 04:34 MCHC 33.0 g/dL (31.6-35.5) 12/01/17 04:34 RDW 13.1 % (11.5-14.5) 12/01/17 04:34 Plt Count 284 K/mcL (140-400) 12/01/17 04:34 MPV 10.4 fL (9.4-12.4) 12/01/17 04:34 Immature Gran % 0.7 % (0-4) 12/01/17 04:34 Seg Neutrophils % 64.9 % 12/01/17 04:34 Lymphocytes % 25.3 % 12/01/17 04:34 Monocytes % 7.3 % 12/01/17 04:34 Eosinophils % 1.4 % 12/01/17 04:34 Basophils % 0.4 % 12/01/17 04:34 Neutrophils # 7.6 K/mcL (1.6-8.9) 12/01/17 04:34 Lymphocytes # 3.0 K/mcL (0.6-4.6) 12/01/17 04:34 Monocytes # 0.9 K/mcL (0.0-1.3) 12/01/17 04:34 Eosinophils # 0.2 K/mcL (0.0-0.6) 12/01/17 04:34 Basophils # 0.1 K/mcL (0.0-0.2) 12/01/17 04:34 Sodium 135 mEq/L (136-145) L 12/01/17 04:34 Potassium 2.9 mEq/L (3.5-5.1) L 12/01/17 04:34 Chloride 103 mEq/L (98-107) 12/01/17 04:34 Carbon Dioxide 21 mEq/L (23-29) L 12/01/17 04:34 BUN 32 mg/dL (6-20) H 12/01/17 04:34 Creatinine 0.68 mg/dL (0.60-1.20) 12/01/17 04:34 Est GFR ( Amer) > 60 (> 60) 12/01/17 04:34 Est GFR (Non-Af Amer) > 60 (> 60) 12/01/17 04:34 BUN/Creatinine Ratio 47 (6-26) H 12/01/17 04:34 Glucose 75 mg/dL (70-105) 12/01/17 04:34 Calculated Osmolality 286 (280-300) 12/01/17 04:34 Calcium 8.5 mg/dL (8.6-10.3) L 12/01/17 04:34 Total Bilirubin 0.9 mg/dL (0.3-1.0) 11/30/17 11:57 Direct Bilirubin 0.2 mg/dL (0.0-0.2) 11/30/17 11:57 Indirect Bilirubin 0.7 mg/dL (0.0-1.2) 11/30/17 11:57 AST 81 Units/L (13-39) H 11/30/17 11:57 ALT 30 Units/L (7-52) 11/30/17 11:57 Alkaline Phosphatase 86 Units/L (34-104) 11/30/17 11:57 Serum Total Protein 7.4 g/dL (6.4-8.9) 11/30/17 11:57 Albumin 4.4 g/dL (3.5-5.7) 11/30/17 11:57 Globulin 3.0 g/dL (2.4-3.5) 11/30/17 11:57 Albumin/Globulin Ratio 1.5 (1.1-2.2) 11/30/17 11:57 Ur Specimen Adequacy See below A 11/30/17 12:59 Urine Color Red (Yellow) A 11/30/17 12:59 Urine Clarity Cloudy (Clear) A 11/30/17 12:59 Urine pH 5.5 pH Units (5.0-8.0) 11/30/17 12:59 Ur Specific [place] 1.028 (1.010-1.025) H 11/30/17 12:59 Urine Protein 100 mg/dL (Neg-Trace) H 11/30/17 12:59 Urine Glucose (UA) Normal mg/dL (Normal) 11/30/17 12:59 Urine Ketones 40 mg/dL (Negative) H 11/30/17 12:59 Urine Blood Large (Negative) H 11/30/17 12:59 Urine Nitrite Positive (Negative) A 11/30/17 12:59 Urine Bilirubin Small (Negative) H 11/30/17 12:59 Urine Urobilinogen Normal mg/dL (Normal) 11/30/17 12:59 Ur Leukocyte Esterase Small (Negative) H 11/30/17 12:59 Urine Test Negative (Negative) 11/30/17 13:06 Salicylates < 5.0 mg/dL (15.0-30.0) L 11/30/17 11:57 Urine Opiates Screen Negative ng/mL (Fjssjo=598) 11/30/17 13:07 Acetaminophen < 1.0 mcg/mL (10-30) L 11/30/17 11:57 Ur Barbiturates Screen Negative ng/mL (Wmrfps=706) 11/30/17 13:07 Ur Phencyclidine Scrn Negative ng/mL (Cutoff=25) 11/30/17 13:07 Ur Amphetamines Screen Positive ng/mL (Fuytsq=0331) H 11/30/17 13:07 U Benzodiazepines Scrn Negative ng/mL (Gxohqg=593) 11/30/17 13:07 Urine Cocaine Screen Positive ng/mL (Cutoff= 300) H 11/30/17 13:07 U Marijuana (THC) Screen Negative ng/mL (Cutoff = 50) 11/30/17 13:07 Ethyl Alcohol < 10 mg/dL (0-10) 11/30/17 11:57 - Impressions Impressions Chest CT 11/30/17 16:11 IMPRESSION: Pneumomediastinum as well as emphysema within the fascia planes of the visualized lower neck. Scratch Bilateral upper lung predominant anterior peripheral alveolar infiltrates, nonspecific. D/ / Lavinia Duran Cha, MD / Lavinia Duran Cha, MD Interpreting Provider: Lavinia Duran Cha, MD Chest X-Ray 12/01/17 06:00 IMPRESSION: Trace pneumomediastinum adjacent to the aortic arch. Clear lungs. D/ / Gorge Steele MD / Gorge Steele MD Interpreting Provider: Gorge Steele MD Consult Discharge Plan - Plan Referrals: NONE,PCP [Primary Care Provider] -
[2017-12-01] MEDS: *HR* Heparin 5,000 UNIT/ML VIAL SQ SCH ×2 (13:59→20:44)
--- NOTE | 2017-12-01 16:57 | Electrocardiograph Report ---
[address] [place], [place] [address] Test Date: 2017-11-30 Pat Name: Maame Chavez Department: 104 Room: 3B43 Gender: F [employer]: MSC : 1985 Requested By: Gabe Taylor Order Number: [id number] Reading MD: Delmar Dumont Measurements Intervals [place] Rate: 100 P: DC: 0 QRS: 78 QRSD: 85 T: 68 QT: 343 QTc: 400 Interpretive Statements PROBABLE SINUS TACHYCARDIA ABNORMAL RHYTHM ECG Electronically Signed On 12-01-2017 16:56:28 EST by Delmar Dumont
[2017-12-02] MEDS: 0.9 % Sodium Chloride 1,000 ML IVC SCH ×3 (02:50→17:49)
[2017-12-02 04:57] LABS: BUN/Creatinine Ratio 21 (6-26); Blood Urea Nitrogen 12 mg/dL (6-20); Calcium 8.3 mg/dL (8.6-10.3); Carbon Dioxide 26 mEq/L (23-29); Chloride 109 mEq/L (98-107); Glucose 117 mg/dL (70-105); Osmolality,Calculated 287 (280-300); Potassium 3.5 mEq/L (3.5-5.1); Sodium 138 mEq/L (136-145); eGFR For African Americans > 60 (> 60); eGFR For Non-African Americans > 60 (> 60)
[2017-12-02] MEDS: *HR* Heparin 5,000 UNIT/ML VIAL SQ SCH ×3 (05:53→20:17)
[2017-12-02] MEDS: cefTRIAXone 1,000 MG in Water for inj. (sterile) 20 ML 10 ML IVP SCH (08:10)
[2017-12-02] MEDS ORDERED: Ketorolac 30 MG/ML VIAL IVP ONE (08:53)
--- NOTE | 2017-12-02 10:15 | Pulmonology Progress Note ---
Date of Encounter: 12/02/17 Time of Encounter: 08:35 Assessment and Plan (1) Pneumomediastinum Current Visit: Yes Status: Acute Patient looks like she did a Valsalva maneuver to get high , usually that is the mechanism of pneumomediastinum which is very common crack cocaine users . Will monitor there is no evidence of mediastinal collection or any mediastinitis if it is the latter patient will be more sicker . Will monitor overnight for symptoms worsening like shortness breadth and chest pain . There is some evidence of some emphysema in the neck doubt she was vein popping around the neck . No evidence of pneumothorax will follow tomorrow (2) Small airways disease Current Visit: Yes Status: Chronic Patient has early stages of small airway disease in the CT scan in the future it can present as COPD . Counseled about smoking cessation (3) Methamphetamine abuse Current Visit: Yes Status: Acute Patient should go to inpatient rehab . Objective PUL Vital signs: Last Vital Signs Temp 98.0 F 12/02/17 07:56 Pulse 83 12/02/17 07:56 Resp 16 12/02/17 07:56 BP 101/68 12/02/17 07:56 Pulse Ox 98 12/02/17 07:56 Results - Laboratory Findings CBC and BMP: 12/01/17 04:34 12/02/17 03:54 Abnormal lab findings: Abnormal lab results WBC 11.7 K/mcL (4.3-11.1) H 12/01/17 04:34 Hgb 11.0 g/dL (11.5-15.4) L 12/01/17 04:34 Hct 33.3 % (35.3-44.9) L 12/01/17 04:34 Chloride 109 mEq/L (98-107) H 12/02/17 03:54 Creatinine 0.57 mg/dL (0.60-1.20) L 12/02/17 03:54 Glucose 117 mg/dL (70-105) H 12/02/17 03:54 Calcium 8.3 mg/dL (8.6-10.3) L 12/02/17 03:54 AST 81 Units/L (13-39) H 11/30/17 11:57 Ur Specimen Adequacy See below A 11/30/17 12:59 Urine Color Red (Yellow) A 11/30/17 12:59 Urine Clarity Cloudy (Clear) A 11/30/17 12:59 Ur Specific [place] 1.028 (1.010-1.025) H 11/30/17 12:59 Urine Protein 100 mg/dL (Neg-Trace) H 11/30/17 12:59 Urine Ketones 40 mg/dL (Negative) H 11/30/17 12:59 Urine Blood Large (Negative) H 11/30/17 12:59 Urine Nitrite Positive (Negative) A 11/30/17 12:59 Urine Bilirubin Small (Negative) H 11/30/17 12:59 Ur Leukocyte Esterase Small (Negative) H 11/30/17 12:59 Salicylates < 5.0 mg/dL (15.0-30.0) L 11/30/17 11:57 Acetaminophen < 1.0 mcg/mL (10-30) L 11/30/17 11:57 Ur Amphetamines Screen Positive ng/mL (Vvvwlm=9938) H 11/30/17 13:07 Urine Cocaine Screen Positive ng/mL (Cutoff= 300) H 11/30/17 13:07 - Clinical Findings Intake & Output: Intake & Output 12/01/17 12/02/17 12/02/17 23:59 07:59 15:59 Intake Total 1000 / 1000 Output Total 125 / 125 Balance -125 / -125 1000 / 1000 Weight 54.159 kg Consult Discharge Plan - Plan Referrals: NONE,PCP [Primary Care Provider] -
--- NOTE | 2017-12-02 11:51 | Internal Med Progress Note ---
Date of Encounter: 12/02/17 Time of Encounter: 11:49 - Assessment and plan (1) Pneumomediastinum Current Visit: Yes Status: Acute Assessment and plan: head CT showed a retropharyngeal emphysema and a CT of chest was recommended. Patient initially refused CT however she eventually did agree. Chest CT showed pneumomediastinum as well as emphysema within the fascial planes of the lower neck. Hemodynamically stable, does not appear acute or toxic. Pneumomediastinum likely secondary to inhalation of methamphetamines; patient admitted to smoking crystal meth 2-3 days ago. Repeat CXR pending. Pulmonology followed. (2) Acute encephalopathy Current Visit: No Status: Acute Assessment and plan: presented with paranoia, agitation, and hallucinations. Head CT nonacute. UA indicative of UTI as noted below which could have contributed to altered mental status however most likely drug induced. UDS positive for methamphetamines and cocaine. Mentation back to baseline as of 12/02/17. No further workup indicated at this time. (3) Drug-induced psychotic disorder Current Visit: Yes Status: Acute Assessment and plan: presented with alteration in mental status including agitation, hallucinations and paranoia. Suspect secondary to methamphetamine and cocaine use. Initially managed with one-on-one sitter. Evaluated by psychiatry who did not feel patient was in imminent danger to self or others. Inpatient drug rehabilitation recommended. Discussed with patient on 12/02 and she is considering. Start Wellbutrin, Thorazine per psychiatry recommendations. Qualifiers: Complication of substance-induced condition: with hallucinations Qualified Code(s): F19.951 - Other psychoactive substance use, unspecified with psychoactive substance-induced psychotic disorder with hallucinations (4) Polysubstance abuse Current Visit: Yes Status: Acute Assessment and plan: Known history of drug abuse. UDS positive for cocaine, methamphetamines. Cessation advised. Patient is considering inpatient drug rehabilitation. Consult social welfare research worker for discharge planning assistance. (5) UTI (urinary tract infection) Current Visit: Yes Status: Acute Assessment and plan: UTI found on UA with large hematuria, positive nitrates and small leukocyte esterase. Cont IV ceftriaxone. Narrow according to urine culture. Qualifiers: Urinary tract infection type: site unspecified Hematuria presence: with hematuria Qualified Code(s): N39.0 - Urinary tract infection, site not specified; R31.9 - Hematuria, unspecified; R31.9 - Hematuria, unspecified (6) Hypokalemia Current Visit: Yes Status: Acute Assessment and plan: K dropped to 2.9; PO and IV replacement ordered. Repeat potassium normal, magnesium 2.1. Intimately monitor electrolytes and replace PRN (7) DVT prophylaxis Current Visit: Yes Status: Acute Assessment and plan: heparin - Subjective Interval history: Seen and examined at bedside. Says she feels much better from yesterday. Still tired, weak and a little agitated but overall improved. No shortness of breath or chest pain. - Constitutional Vitals: Temp Pulse Resp BP Pulse Ox 99.2 F 79 16 104/68 98 12/02/17 11:33 12/02/17 11:33 12/02/17 11:33 12/02/17 11:33 12/02/17 11:33 General appearance: Present: cooperative, disheveled, A&O X 3, no acute distress , answers questions appropriately - Head Head exam: Present: atraumatic, normocephalic - Eye Eye exam: Present: PERRL, conjuntiva pink, sclera anicteric Pupils: Present: PERRL - Neck Neck exam general surgery: Present: supple, trachea midline. Absent: lymphadenopathy - Respiratory Respiratory exam: Present: CTAB. Absent: accessory muscle use, rales, rhonchi, wheezes - Cardiovascular Cardiovascular exam: Present: RRR, +S1, +S2. Absent: diastolic murmur, gallop, rubs, systolic murmur - GI/Abdominal GI/Abdominal exam: Present: normal bowel sounds, soft, no peritoneal signs. Absent: distended, tenderness - Extremities Exam Extremities exam: Present: warm, radial pulses palpable and symmetrical. Absent : calf tenderness, cyanotic, pedal edema - Neurological Exam Neurological exam: Present: CN II-XII intact, oriented X3, no focal deficits. Absent: pronater drift, facial droop, speech deficit - Skin Skin exam: Present: dry, intact Internal Medicine: Result - Labs CBC & Chem 7: 12/01/17 04:34 12/02/17 03:54 Labs: BMP 12/01/17 12/02/17 17:10 03:54 Sodium 138 Potassium 3.8 D 3.5 Chloride 109 H Carbon Dioxide 26 BUN 12 Creatinine 0.57 L Glucose 117 H Calcium 8.3 L Consult Discharge Plan - Plan Referrals: NONE,PCP [Primary Care Provider] -
[2017-12-02] MEDS: BuPROPion SR (12 HR) 100 MG TABLET PO SCH (14:02)
[2017-12-02] MEDS ORDERED: Ketorolac 15 MG/ML VIAL IVP ONE (17:42)
[2017-12-02] MEDS ORDERED: chlorproMAZINE 25 MG TABLET PO SCH (21:00)
[2017-12-03] MEDS: *HR* Heparin 5,000 UNIT/ML VIAL SQ SCH (05:15)
[2017-12-03 06:05] LABS: Hematocrit 32.4 % (35.3-44.9); Hemoglobin 10.5 g/dL (11.5-15.4); Mean Corpuscular HGB Conc 32.4 g/dL (31.6-35.5); Mean Corpuscular Volume 86.4 fL (83.0-100.0); Mean Platelet Volume 11.1 fL (9.4-12.4); Platelet Count 266 K/mcL (140-400); Red Blood Count 3.75 M/mcL (3.82-4.97); Red Cell Distribution Width 13.3 % (11.5-14.5)
[2017-12-03 06:49] LABS: BUN/Creatinine Ratio 10 (6-26); Blood Urea Nitrogen 6 mg/dL (6-20); Calcium 8.4 mg/dL (8.6-10.3); Carbon Dioxide 27 mEq/L (23-29); Chloride 110 mEq/L (98-107); Glucose 114 mg/dL (70-105); Osmolality,Calculated 286 (280-300); Potassium 3.4 mEq/L (3.5-5.1); Sodium 139 mEq/L (136-145); eGFR For African Americans > 60 (> 60); eGFR For Non-African Americans > 60 (> 60)
[2017-12-03] MEDS: 0.9 % Sodium Chloride 1,000 ML IVC SCH (08:17)
[2017-12-03] MEDS: BuPROPion SR (12 HR) 100 MG TABLET PO SCH (08:17)
[2017-12-03] MEDS: cefTRIAXone 1,000 MG in Water for inj. (sterile) 20 ML 10 ML IVP SCH (08:18)
[2017-12-03 12:24] VITALS: BP 109/75
--- NOTE | 2017-12-03 13:47 | Discharge Summary ---
Date of Encounter: 12/03/17 Time of Encounter: 14:08 - Discharge Diagnosis (1) Pneumomediastinum Priority: Primary Status: Acute Comments: head CT showed a retropharyngeal emphysema and a CT of chest was recommended. Patient initially refused CT however she eventually did agree. Chest CT showed pneumomediastinum as well as emphysema within the fascial planes of the lower neck. Hemodynamically stable, did not appear acute or toxic. Pneumomediastinum likely secondary to inhalation of methamphetamines; patient admitted to smoking crystal meth 2-3 days ago. Repeat CXR without evidence of pneumomediastinum. Pulmonology followed (2) Acute encephalopathy Priority: Primary Status: Resolved Comments: presented with paranoia, agitation, and hallucinations. Head CT nonacute. UA indicative of UTI as noted below which could have contributed to altered mental status however most likely drug induced. UDS positive for methamphetamines and cocaine. Mentation back to baseline as of 12/02/17. No further workup indicated (3) Drug-induced psychotic disorder Priority: Primary Status: Resolved Comments: presented with alteration in mental status including agitation, hallucinations and paranoia. Suspect secondary to methamphetamine and cocaine use. Initially managed with one-on-one sitter. Evaluated by psychiatry who did not feel patient was in imminent danger to self or others. Inpatient drug rehabilitation recommended; patient initially agreeable to inpatient rehabilitation however decided against it on day of discharge. Provide a list of community resources. Wellbutrin, Thorazine per psychiatry recommendations. Recommend outpatient psychiatry follow-up. Qualifiers: Complication of substance-induced condition: with hallucinations Qualified Code(s): F19.951 - Other psychoactive substance use, unspecified with psychoactive substance-induced psychotic disorder with hallucinations (4) Polysubstance abuse Priority: Primary Status: Acute Comments: Known history of drug abuse. UDS positive for cocaine, methamphetamines. Cessation advised. Plan as noted above (5) UTI (urinary tract infection) Priority: Primary Status: Acute Comments: UTI found on UA with large hematuria, positive nitrates and small leukocyte esterase. No gunnar hematuria. No urine culture available for review. Received 3 doses IV ceftriaxone while inpatient. Asymptomatic. Patient declined to stay for repeat UA. Recommend following up with PCP. Qualifiers: Urinary tract infection type: site unspecified Hematuria presence: with hematuria Qualified Code(s): N39.0 - Urinary tract infection, site not specified; R31.9 - Hematuria, unspecified; R31.9 - Hematuria, unspecified (6) Hypokalemia Priority: Primary Status: Acute Comments: K dropped to 2.9; normalized with replacement. Likely secondary to nausea vomiting prior to arrival. Recommend repeat CMP within 1-2 weeks. Hospital course: Ms. Chavez is a 32 year old female history polysubstance abuse who presented to [facility] 11/30/2017 with confusion, agitation and paranoia. She was placed in observation status for further workup and treatment. She was evaluated by psychiatry who suspected drug-induced psychosis. She was deemed not to be an eminent threat to herself or others and one-on-one sitter was discontinued. Inpatient drug rehabilitation was recommended and patient initially was agreeable however she decided to defer inpatient rehabilitation at this time. Stated she wanted to go home see her family for a couple days and then she would go. Seen and examined on day of discharge. Says she wants to go home and wants a cigarette otherwise has no complaints. Spoke with her at length regarding importance of illegal substance cessation. Patient states she has a desire to quit and will go to rehabilitation in 2-3 days. List of community resources provided to patient prior to discharge. See assessment and plan for further details. - Time Spent with Patient Total time spent providing and/or coordinating discharge services: - Discharge Medications Prescriptions: BuPROPion SR (12 HR) [Wellbutrin SR] 100 mg PO DAILY #30 tablet.er chlorproMAZINE [Thorazine] 50 mg PO HS #60 tablet Home Medications: BuPROPion SR (12 HR) [Wellbutrin SR] 100 mg PO DAILY #30 tablet.er 12/03/17 [Rx] chlorproMAZINE [Thorazine] 50 mg PO HS #60 tablet 12/03/17 [Rx] Allergies/Adverse Reactions: 3 Allergy/AdvReac Type Severity Reaction Status Date / Time codeine Allergy See Verified 02/14/17 21:49 Comments prednisone Allergy See Verified 02/14/17 21:48 Comments Date of admission: 11/30/17 14:32 Primary care physician: PCP NONE Consults: 11/30/17 14:50 Consult to Psychiatry [CONS] Routine Consulting Provider: Psychiatry [facility] Reason for Consult: Polysubstance abuse, hallucinations, paranioa, and agitation. Time Notified: 14:51 Call Completed: Yes 12/01/17 11:54 Consult to Pulmonology [CONS] Routine Consulting Provider: [facility] Reason for Consult: Pneumomediastinum Call Completed: Yes Discharging clinician: Carmelita Barnett Anticipated date of discharge: 12/03/17 - Constitutional Vitals: Temp Pulse Resp BP Pulse Ox 97.7 F 94 17 109/75 97 12/03/17 12:22 12/03/17 12:22 12/03/17 12:22 12/03/17 12:22 12/03/17 12:22 General appearance: Present: cooperative, disheveled, A&O X 3, no acute distress , answers questions appropriately - Head Head exam: Present: atraumatic, normocephalic - Eye Eye exam: Present: PERRL, conjuntiva pink, sclera anicteric Pupils: Present: PERRL - Neck Neck exam general surgery: Present: supple, trachea midline. Absent: lymphadenopathy - Respiratory Respiratory exam: Present: CTAB. Absent: accessory muscle use, rales, rhonchi, wheezes - Cardiovascular Cardiovascular exam: Present: RRR, +S1, +S2. Absent: diastolic murmur, gallop, rubs, systolic murmur - GI/Abdominal GI/Abdominal exam: Present: normal bowel sounds, soft, no peritoneal signs. Absent: distended, tenderness - Extremities Exam Extremities exam: Present: warm, radial pulses palpable and symmetrical. Absent : calf tenderness, cyanotic, pedal edema - Neurological Exam Neurological exam: Present: CN II-XII intact, oriented X3, no focal deficits. Absent: pronater drift, facial droop, speech deficit - Skin Skin exam: Present: dry, intact - Patient Status Disposition: Home, Self-Care Condition: Good Functional capacity at discharge: independent ambulation Overall status at discharge: patient is back to baseline - Discharge Instructions Instructions: Methamphetamine (By mouth), Cocaine Abuse (DC), Bupropion (By mouth) Follow Up With: NONE,PCP [Primary Care Provider] - (Please establish care with a primary care doctor and follow-up within 1-2 weeks. He did not have a primary care doctor he can call [phone] to find local physicians accepting new patients.) Mary Anne Johnston MD [Partnered Physician] - (Please call for follow-up appt within 1-2 weeks ) Forms: ED Satisfaction Letter - Diet and Activity Activity: increase activity as tolerated Diet: advance to your usual diet
== END 2017-12-03 15:25 | disposition home or self-care (01) ==
LOC: 3BNU 11:34 → EMEROO 11:34 → 3BNU 15:13
PROVIDERS: ADMIT Family Medicine; ATTEND Registered Nurse

== ENCOUNTER 2018-02-22 20:31 | Observation (INO) ==
[2018-02-22] MEDS ORDERED: 0.9 % Sodium Chloride 1,000 ML IVC SCH (23:45)
[2018-02-22] MEDS ORDERED: Naloxone 0.4 MG/ML INJ IVP PRN (23:56)
--- NOTE | 2018-02-23 00:02 | Internal Med History&Physical ---
Date of Encounter: 02/23/18 Time of Encounter: 23:59 Internal Medicine - H&P: HPI Chief complaint: Methamphetamine intoxication History of present illness: Ms. Chavez is a 32 year old female with a history of methamphetamine use who presents with intoxication to [place] ED. On initial evaluation at [facility], she was suspected to have suicidal intentions in the setting of depression and prior reported history per [facility] ED. Therefore she was pink slipped and transferred here for observation and psychiatric evaluation. She was given IV benzo for confusion and agitation at [facility] ED. On arrival to [facility] patient's remains partially confused and suggested that she was picked up by local police while walking along the street. She last used methamphetamine yesterday. Denies any other drug use. It appears that she does have a history of depression and wants to feel well thereby seeking drugs. To me she denies overt suicidal ideations. On review she complains of dyspepsia type symptoms and asked for anti-acid medicines. She is hungry EKG personally reviewed with rate 69, normal sinus rhythm, T-wave changes in V1 and V2 CT/CT head/brain wo con IMPRESSION: No acute intracranial abnormality. XR/XR chest 1V portable IMPRESSION: No acute cardiopulmonary disease. Past Med Surg Social Fam HX - Past Medical History Medical history: no medical history, other Additional medical history: substance abuse Psychiatric history: anxiety, bipolar, depression, previous psychiatric hospitalization - Past Surgical History Surgical History: non-contributory Additional surgical history: Unknown - Social History Smoking Status: Current every day smoker Smokeless Tobacco Status: No Alcohol use: none Drug use: methamphetamine Internal Medicine - H&P: Meds BuPROPion SR (12 HR) [Wellbutrin SR] 100 mg PO DAILY #30 tablet.er 12/03/17 [Rx] chlorproMAZINE [Thorazine] 50 mg PO HS #60 tablet 12/03/17 [Rx] 3 Allergy/AdvReac Type Severity Reaction Status Date / Time codeine Allergy See Verified 02/14/17 21:49 Comments prednisone Allergy See Verified 02/14/17 21:48 Comments All Systems PM: A 10-system review of systems was performed and is negative for pertinent findings except as documented above in the HPI. Review of systems: ROS 14 point review of systems reviewed as best as possible given presentation. Pertinent positive or negative as per HPI or otherwise reviewed as negative - Constitutional Vitals: Temp Pulse Resp BP Pulse Ox 98.5 F 56 16 104/49 100 02/22/18 23:39 02/22/18 23:39 02/22/18 23:39 02/22/18 23:39 02/22/18 23:39 Exam: General - partially confused Psych - Appropriate affect/speech. No agitation Eyes - BEV. Eye lids intact. No scleral icterus Heart - Sinus. RRR. S1 and S2 present. No added HS/murmurs appreciated. No elevated JVD appreciated. Lung - Adequate air entry b/l, No crackles/wheezes appreciated GI - Soft, non-tender. No hepatosplenomegaly/ascites. BS+ - No CVA/suprapubic tenderness or palpable bladder distension Skin - Intact. No rash/petechiae/ecchymosis. Warm extremities - Assessment and plan (1) Methamphetamine abuse Current Visit: No Status: Acute Assessment and plan: Related to psychosis and confusion episode prior to presentation. She appears to be improving with time Continue IV fluids Monitor hospital course closely (2) Drug-induced psychotic disorder Current Visit: No Status: Resolved Assessment and plan: Will need assistance with cessation program Will allow drugs to wash off her system Qualifiers: Complication of substance-induced condition: with hallucinations Qualified Code(s): F19.951 - Other psychoactive substance use, unspecified with psychoactive substance-induced psychotic disorder with hallucinations (3) Suicidal ideation Current Visit: Yes Status: Acute Assessment and plan: Was [facility] ED. We will seek psychiatric consultation for comprehensive evaluation of mental health and optimization Sitter for now - Time Spent With Patient Total time spent is greater than 50% in coordination of care (as documented) at patient's floor/unit and/or counseling patient:
[2018-02-23] MEDS: Sucralfate 1 GM TABLET PO SCH ×3 (00:19→11:47)
[2018-02-23 05:04] LABS: Basophils % 0.4 %; Eosinophils # 0.3 K/mcL (0.0-0.6); Hemoglobin 11.5 g/dL (11.5-15.4); Immature Granulocytes % 0.7 % (0-4); Lymphocytes # 2.9 K/mcL (0.6-4.6); Lymphocytes % 29.6 %; Mean Corpuscular HGB Conc 32.9 g/dL (31.6-35.5); Mean Corpuscular Hemoglobin 28.3 pg (28.0-33.3); Mean Platelet Volume 10.1 fL (9.4-12.4); Monocytes # 0.8 K/mcL (0.0-1.3); Monocytes % 8.4 %; Neutrophils # 5.7 K/mcL (1.6-8.9); Platelet Count 294 K/mcL (140-400); Red Blood Count 4.07 M/mcL (3.82-4.97); Red Cell Distribution Width 13.8 % (11.5-14.5); Segmented Neutrophils % 57.9 %
[2018-02-23 05:22] LABS: Alanine Aminotransferase 17 Units/L (7-52); Albumin 3.7 g/dL (3.5-5.7); Albumin/Globulin Ratio 1.5 (1.1-2.2); Alkaline Phosphatase 67 Units/L (34-104); Aspartate Amino Transferase 28 Units/L (13-39); BUN/Creatinine Ratio 23 (6-26); Bilirubin,Total 0.5 mg/dL (0.3-1.0); Blood Urea Nitrogen 17 mg/dL (6-20); Calcium 8.6 mg/dL (8.6-10.3); Carbon Dioxide 22 mEq/L (23-29); Chloride 110 mEq/L (98-107); Globulin 2.4 g/dL (2.4-3.5); Glucose 107 mg/dL (70-105); Osmolality,Calculated 288 (280-300); Potassium 3.2 mEq/L (3.5-5.1); Sodium 138 mEq/L (136-145); Total Protein 6.1 g/dL (6.4-8.9); eGFR For African Americans > 60 (> 60); eGFR For Non-African Americans > 60 (> 60)
[2018-02-23] MEDS: Nicotine 21 MG PATCH.TD24 TD SCH ×2 (09:04→09:13)
[2018-02-23 11:23] VITALS: BP 105/69
--- NOTE | 2018-02-23 13:57 | Discharge Summary ---
- NOTES TO OUTPATIENT PROVIDER Notes to Outpatient Provider: With own psychiatrist Date of Encounter: 02/23/18 Time of Encounter: 13:54 - Discharge Diagnosis (1) Drug-induced psychotic disorder Priority: Primary Status: Resolved Qualifiers: Complication of substance-induced condition: with hallucinations Qualified Code(s): F19.951 - Other psychoactive substance use, unspecified with psychoactive substance-induced psychotic disorder with hallucinations (2) Methamphetamine abuse Priority: Secondary Status: Chronic (3) Suicidal ideation Priority: Primary Status: Resolved Hospital course: Ms. Chavez is a 32 year old female with meth abuse, placed on observation for drug induced psychosis with suicidal ideation , she was placed with a sitter Labs and work up unremarkable She was seen and examined at bedside this mrjusto, no new complains Psych has been consulted and cleared the patient for discharge Discharge discussed with: patient, nurse - Time Spent with Patient Total time spent providing and/or coordinating discharge services: Less than 30 minutes - Discharge Medications Home Medications: No Known Home Drugs 02/23/18 [History] Allergies/Adverse Reactions: 3 Allergy/AdvReac Type Severity Reaction Status Date / Time codeine Allergy Rash Verified 02/23/18 09:26 prednisone Allergy Rash Verified 02/23/18 09:26 Date of admission: 02/22/18 23:24 Primary care physician: PCP NONE Consults: 02/22/18 23:57 Consult to Psychiatry [CONS] Routine Consulting Provider: Psychiatry Miriam Reason for Consult: eval for depression ? Was pink slipped in [place] ED Call Completed: Yes Discharging clinician: Toni Bashir Anticipated date of discharge: 02/23/18 - Constitutional Vitals: Temp Pulse Resp BP Pulse Ox 97.8 F 102 14 105/69 98 02/23/18 11:22 02/23/18 11:22 02/23/18 11:22 02/23/18 11:22 02/23/18 11:22 General appearance: Present: A&O X 3, no acute distress - Head Head exam: Present: atraumatic, normocephalic - Eye Eye exam: Present: PERRL, conjuntiva pink, sclera anicteric Pupils: Present: PERRL - Neck Neck exam general surgery: Present: supple, trachea midline. Absent: lymphadenopathy - Respiratory Respiratory exam: Present: CTAB. Absent: accessory muscle use, rales, rhonchi, wheezes - Cardiovascular Cardiovascular exam: Present: RRR, +S1, +S2. Absent: diastolic murmur, gallop, rubs, systolic murmur - GI/Abdominal GI/Abdominal exam: Present: normal bowel sounds, soft, no peritoneal signs. Absent: distended, tenderness - Extremities Exam Extremities exam: Present: warm, radial pulses palpable and symmetrical. Absent : calf tenderness, cyanotic, pedal edema - Neurological Exam Neurological exam: Present: alert, CN II-XII intact, oriented X3, no focal deficits. Absent: pronater drift, facial droop, speech deficit - Skin Skin exam: Present: dry, intact - Patient Status Disposition: Home, Self-Care Condition: Good Functional capacity at discharge: independent ambulation Overall status at discharge: patient is back to baseline - Discharge Instructions Follow Up With: NONE,PCP [Primary Care Provider] - - Diet and Activity Activity: resume usual activities as tolerated Diet: regular diet
--- NOTE | 2018-02-23 14:07 | Consult Note ---
Date of Encounter: 02/23/18 Time of Encounter: 14:03 Assessment & Recommendation (1) Drug-induced psychotic disorder Current visit: No Status: Resolved Assessment & Recommendation: 1. From psychiatric standpoint, patient is stable to discharge 2. I recommend follow-up with her psychiatrist in 2 weeks Thank you for consultation Qualifiers: Complication of substance-induced condition: with hallucinations Qualified Code(s): F19.951 - Other psychoactive substance use, unspecified with psychoactive substance-induced psychotic disorder with hallucinations History of Present Illness Patient: new to practice Requesting Physician: Jodie Weiss MD Reason for consult: Methamphetamine-induced psychosis History of present illness: Ms. Chavez is a 32 year old female with long history of methamphetamine and substance abuse. She was seen and evaluated and [place] [facility] for psychosis and agitation patient tox screen was positive for methamphetamine she was delusional and paranoid hallucinating and was evaluated and treated was benzodiazepine. Patient was referred to admission to [facility] for further treatment and stabilization and psychiatric consultation was requested to evaluate her mental status. From the records patient has history of substance abuse spatially methamphetamine mental health history has not been on the records or clear but the patient stated that she has been seeing his psychiatrist in [place] dr chino, she states she had a history of ADHD and was treated was gabapentin in the past and other medication and she is scheduled to see her psychiatrist in February. Patient denied any suicidal ideation or hallucinations and she was alert and oriented and cooperative. She denies any history of suicide attempts. CC: Jodie Weiss MD Past Med Surg Social Fam HX - Past Medical History Medical history: no medical history, other - Past Psychiatric History Psychiatric history: Reports: ADHD, depression - Past Surgical History Surgical History: non-contributory - Social History Smoking Status: Current every day smoker Smokeless Tobacco Status: No Alcohol use: none Drug use: methamphetamine - Family History Father Hx Family Cardiac Disorders: Yes Medications & Allergies No Known Home Drugs 02/23/18 [History] 3 Allergy/AdvReac Type Severity Reaction Status Date / Time codeine Allergy Rash Verified 02/23/18 09:26 prednisone Allergy Rash Verified 02/23/18 09:26 Review of Systems Psychiatric: Reports: auditory hallucinations, visual hallucinations, irritability, mood swings Psychiatry Exam - Constitutional Vitals: Temp Pulse Resp BP Pulse Ox 97.8 F 102 14 105/69 98 02/23/18 11:22 02/23/18 11:22 02/23/18 11:22 02/23/18 11:22 02/23/18 11:22 General appearance: age & developmentally appropriate, well-groomed, well- nourished, bizarre, thin - Musculoskeletal Gait: normal Station: relaxed Strength & Tone: normal for patient - Psychiatric Patient Orientation: Yes Person, Yes Time, Yes Place Level of alertness: Alert Behavior: calm, cooperative Psychomotor activity: Increased Eye Contact: Maintains Eye Contact Mood Description: Euthymic/stable, Euphoric, Labile Affect description: congruent with mood, labile Speech Volume: Normal, Loud Speech pattern: normal rate, normal rhythm, normal tone, fluent, spontaneous, excessive Language & Vocabulary: consistent with education Thought Process: Linear, Goal Oriented Thought Content: No Suicidal ideation, No Homicidal ideation, No Overt delusions Perceptual Disturbances: No Auditory hallucinations, No Visual hallucinations Attention Span Ability: Capable of Focused Attention Memory Description: Grossly Intact Patient Reliability: Reliable Historian Fund of knowledge: Yes abstraction ability, Yes aware of current events Intelligence Estimate: Average Judgment: Limited Insight: Partial Results - Labs Labs: Laboratory Last Values WBC 9.8 K/mcL (4.3-11.1) 02/23/18 04:36 RBC 4.07 M/mcL (3.82-4.97) 02/23/18 04:36 Hgb 11.5 g/dL (11.5-15.4) 02/23/18 04:36 Hct 35.0 % (35.3-44.9) L 02/23/18 04:36 MCV 86.0 fL (83.0-100.0) 02/23/18 04:36 MCH 28.3 pg (28.0-33.3) 02/23/18 04:36 MCHC 32.9 g/dL (31.6-35.5) 02/23/18 04:36 RDW 13.8 % (11.5-14.5) 02/23/18 04:36 Plt Count 294 K/mcL (140-400) 02/23/18 04:36 MPV 10.1 fL (9.4-12.4) 02/23/18 04:36 Immature Gran % 0.7 % (0-4) 02/23/18 04:36 Seg Neutrophils % 57.9 % 02/23/18 04:36 Lymphocytes % 29.6 % 02/23/18 04:36 Monocytes % 8.4 % 02/23/18 04:36 Eosinophils % 3.0 % 02/23/18 04:36 Basophils % 0.4 % 02/23/18 04:36 Neutrophils # 5.7 K/mcL (1.6-8.9) 02/23/18 04:36 Lymphocytes # 2.9 K/mcL (0.6-4.6) 02/23/18 04:36 Monocytes # 0.8 K/mcL (0.0-1.3) 02/23/18 04:36 Eosinophils # 0.3 K/mcL (0.0-0.6) 02/23/18 04:36 Basophils # 0.0 K/mcL (0.0-0.2) 02/23/18 04:36 Sodium 138 mEq/L (136-145) 02/23/18 04:36 Potassium 3.2 mEq/L (3.5-5.1) L 02/23/18 04:36 Chloride 110 mEq/L (98-107) H 02/23/18 04:36 Carbon Dioxide 22 mEq/L (23-29) L 02/23/18 04:36 BUN 17 mg/dL (6-20) 02/23/18 04:36 Creatinine 0.75 mg/dL (0.60-1.20) 02/23/18 04:36 Est GFR ( Amer) > 60 (> 60) 02/23/18 04:36 Est GFR (Non-Af Amer) > 60 (> 60) 02/23/18 04:36 BUN/Creatinine Ratio 23 (6-26) 02/23/18 04:36 Glucose 107 mg/dL (70-105) H 02/23/18 04:36 Calculated Osmolality 288 (280-300) 02/23/18 04:36 Calcium 8.6 mg/dL (8.6-10.3) 02/23/18 04:36 Total Bilirubin 0.5 mg/dL (0.3-1.0) 02/23/18 04:36 AST 28 Units/L (13-39) 02/23/18 04:36 ALT 17 Units/L (7-52) 02/23/18 04:36 Alkaline Phosphatase 67 Units/L (34-104) 02/23/18 04:36 Troponin I < 0.03 ng/mL (< 0.04) 02/23/18 04:36 Serum Total Protein 6.1 g/dL (6.4-8.9) L 02/23/18 04:36 Albumin 3.7 g/dL (3.5-5.7) 02/23/18 04:36 Globulin 2.4 g/dL (2.4-3.5) 02/23/18 04:36 Albumin/Globulin Ratio 1.5 (1.1-2.2) 02/23/18 04:36 Consult Discharge Plan - Plan Instructions: Methamphetamine Abuse (DC), Suicide Prevention for Adults (DC) Referrals: NONE,PCP [Primary Care Provider] - (Please call [phone])
== END 2018-02-23 15:00 | disposition home or self-care (01) ==
LOC: 2ANU
PROVIDERS: ADMIT Internal Medicine Hematology & Oncology; ATTEND Internal Medicine Hematology & Oncology

== ENCOUNTER 2018-12-03 08:37 | Inpatient (IN) ==
--- NOTE | 2018-12-03 09:09 | Emergency Department Note ---
Disposition Clinical Impression: Acute psychosis Disposition: Admitted As Inpatient Condition: Fair Time of Disposition: 13:58 General Adult HPI - General Chief complaint: ED Psychiatric Symptoms Stated complaint: psych Time Seen by Provider: 12/03/18 08:46 Source: patient, EMS Mode of arrival: EMS Limitations: altered mental status Nursing Notes Reviewed: Yes Vital Signs Reviewed: Yes - History of Present Illness HPI Narrative: Patient is a 33-year-old female that presents emergency department in transfer from outside facility due to acute psychosis. It is reported that the patient has been manic and been having auditory hallucinations. The patient denies any suicidal or homicidal ideations. Patient states that she feels like someone is out to get her and feels unsafe. Patient states that she feels like someone is out to harm her family. Patient states that she has been taking all of her medications as prescribed. Patient states that she been taking her Wellbutrin a nd Suboxone. Patient states that she has been following with her psychiatrist. Patient states that she has required previous admission to the hospital for her bipolar and mental health. Patient states that she has been admitted to here at [facility] in the past. Pain Scale: 0 - Related Data Home Medications Medication Instructions Recorded Confirmed BuPROPion SR (12 HR) [Wellbutrin 100 mg PO BID 12/03/18 12/03/18 SR] Buprenorphine HCl/Naloxone HCl 1 each SL BID 12/03/18 12/03/18 [Suboxone 8 mg-2 mg Sl Film] Cariprazine HCl [Vraylar] 1.5 mg PO DAILY 12/03/18 12/03/18 Allergies Allergy/AdvReac Type Severity Reaction Status Date / Time codeine Allergy Rash Verified 12/03/18 03:23 haloperidol [From Haldol] Allergy See Verified 12/03/18 03:23 Comments Penicillins Allergy See Verified 12/03/18 03:23 Comments prednisone Allergy Rash Verified 12/03/18 03:23 All systems ED: reviewed and negative except as stated. Constitutional: Denies: fever Cardiovascular: Denies: chest pain Respiratory: Denies: dyspnea Gastrointestinal: Denies: abdominal pain Psychiatric: Reports: auditory hallucinations. 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 Absent: respiratory distress, wheezes - Cardiovascular Cardiovascular exam: Present: regular rate, normal rhythm, normal heart sounds, +S1, +S2 - Abdominal Exam Abdominal exam: Present: soft, Non-Tender, normal bowel sounds - Neurological Exam Neurological exam: Present: alert, oriented X3 - Psychiatric Psychiatric exam: Present: normal affect, normal mood - Skin Skin exam: Present: warm, dry, intact Course Vital Signs Temperature 98.8 F 12/03/18 08:52 Pulse Rate 132 12/03/18 08:52 Respiratory Rate 22 12/03/18 08:52 Blood Pressure 129/86 12/03/18 08:52 O2 Sat by Pulse Oximetry 97 12/03/18 08:52 Temperature 98.8 F 12/03/18 08:52 Pulse Rate 101 12/03/18 17:21 Respiratory Rate 20 12/03/18 17:21 Blood Pressure 101/65 12/03/18 17:21 O2 Sat by Pulse Oximetry 95 12/03/18 17:21 Oxygen Delivery Oxygen Delivery Room Air Medical Decision Making - [facility] Narrative Medical decision making narrative: Due the patient having presented from an outside hospital majority the labs for to been obtained. A urinalysis and urine tox screen will be ordered here. Once patient has been deemed medically clear the patient will be evaluated by our 1A team. Patient was pink slip prior to transfer here to [facility]. Patient was evaluated by our 1A psychiatric team who felt that she did not meet requirement for admission. Patient be admitted to the hospital for further evaluation and management of her psychiatric condition. - Medical Records Medical records reviewed: Yes I reviewed the patient's medical records. - Lab Data Lab results reviewed: Yes I reviewed the patient's lab results. Lab Results 12/03/18 12/03/18 Range/Units 09:23 09:26 Urine Color Yellow (Yellow) Urine Clarity Cloudy A (Clear) Urine pH 6.5 (5.0-8.0) pH Units Ur Specific [place] 1.014 (1.010-1.025) Urine Protein Trace (Neg-Trace) mg/dL Urine Glucose (UA) Normal (Normal) mg/dL Urine Ketones Negative (Negative) mg/dL Urine Blood Moderate H (Negative) Urine Nitrite Negative (Negative) Urine Bilirubin Negative (Negative) Urine Urobilinogen Normal (Normal) mg/dL Ur Leukocyte Esterase Negative (Negative) Urine Microscopic RBC 5-15 H (0-3) per hpf Urine Microscopic WBC 0-3 (0-3) per hpf Ur Squamous Epith Cells Many H (None-Few) per lpf Urine Bacteria Many H (None-Few) per hpf Hyaline Casts None Seen (None-Few) per lpf Ur Culture Indicated? NO (NO) Urine Opiates Screen Negative (Aipshk=277) ng/mL Ur Barbiturates Screen Negative (Jhvuex=790) ng/mL Ur Phencyclidine Scrn Negative (Cutoff=25) ng/mL Ur Amphetamines Screen Positive H (Htsfik=6599) ng/mL U Benzodiazepines Scrn Negative (Thtqgh=399) ng/mL Urine Cocaine Screen Negative (Cutoff= 300) ng/mL U Marijuana (THC) Screen Negative (Cutoff = 50) ng/mL Ur Drug Screen Interp See Below - Radiology Data Radiology results reviewed: Yes I reviewed the patient's radiology results. - EKG Data EKG #1 EKG attestation: Yes I reviewed and interpreted this EKG. EKG results narrative: EKG shows sinus tachycardia at a rate of 122 beats minute, WV interval 137, QRS duration of 79, QTC of 424. There is no evidence of STEMI and EKG. Attestation Statement - Attestation Attestation: I, Delmar Byers, examined this patient and my medical decision-making was reviewed with the CVICU RN/PA/Advanced Practice Nurse/Resident Physician. I agree with the documented findings, disposition and treatment plan as described except to the extent set forth below. 33-year-old female presents emergency room with concerns of auditory or visual hallucinations. Patient denies suicidal or homicidal ideation however she states that someone is out to get her. Patient denies fever, chills, nausea, vomiting, diarrhea. Patient admits to methamphetamine use. She also states she takes Suboxone and Wellbutrin. Patient was medically cleared and evaluated by behavioral health who agreed with the plan for admission for acute psychosis.
[2018-12-03 09:36] LABS: Bilirubin,Urine Negative (Negative); Blood,Urine Moderate (Negative); Clarity,Urine Cloudy (Clear); Color,Urine Yellow (Yellow); Glucose,Urine (UA) Normal (Normal); Ketones,Urine Negative (Negative); Leukocyte Esterase,Urine Negative (Negative); Nitrite,Urine Negative (Negative); PH,Urine 6.5 pH Units (5.0-8.0); Protein,Urine Trace mg/dL (Neg-Trace); Specific Gravity,Urine 1.014 (1.010-1.025); Urobilinogen,Urine Normal (Normal)
[2018-12-03 09:39] LABS: Bacteria,Urine Many per hpf (None-Few); Hyaline Casts,Urine None Seen per lpf (None-Few); Squamous Epithelial Cell,Urine Many per lpf (None-Few); WBC,Urine 0-3 per hpf (0-3)
[2018-12-03 09:57] LABS: Amphetamine Screen,Urine Positive ng/mL (Cutoff=1000); Barbiturate Screen,Urine Negative ng/mL (Cutoff=200); Benzodiazepines Screen,Urine Negative ng/mL (Cutoff=200); Cannabinoid Screen,Urine Negative ng/mL (Cutoff = 50); Cocaine Screen,Urine Negative ng/mL (Cutoff= 300); Opiate Screen,Urine Negative ng/mL (Cutoff=300); Phencyclidine Screen,Urine Negative ng/mL (Cutoff=25)
[2018-12-03] MEDS ORDERED: OLANZapine 5 MG TAB.RAPDIS PO STA (11:09)
[2018-12-03] MEDS ORDERED: *HR* LORazepam 2 MG/ML VIAL IM ONE ×3 (12:20→14:56)
[2018-12-03] MEDS ORDERED: Ziprasidone injection 20 MG/ML VIAL IM ONE ×2 (13:14→14:57)
[2018-12-03] MEDS ORDERED: *HR* LORazepam 1 MG TABLET PO PRN (13:41)
[2018-12-03] MEDS ORDERED: MOM Conc 10 ML UD.LIQ PO PRN (13:41)
[2018-12-03] MEDS ORDERED: *HR* LORazepam 2 MG/ML VIAL IM PRN (13:41)
[2018-12-03] MEDS ORDERED: Mag Hydrox/Al Hydrox/Simeth 30 ML UDC PO PRN (13:41)
[2018-12-03] MEDS ORDERED: Ziprasidone injection 20 MG/ML VIAL IM PRN (13:45)
[2018-12-03] MEDS ORDERED: Ziprasidone 20 MG CAPSULE PO PRN (13:47)
[2018-12-03] MEDS ORDERED: Water for inj. (sterile) 10 ML IV ONE (16:11)
[2018-12-03] MEDS: hydrOXYzine pamoate 25 MG CAPSULE PO PRN (23:13)
[2018-12-04] MEDS: (Cariprazine Hcl [Vraylar] 1.5 MG) PO SCH ×2 (09:23→11:21)
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
[2018-12-04] MEDS: Nicotine 21 MG PATCH.TD24 TD SCH (10:36)
[2018-12-04] MEDS: Artificial Tears SOLN 15 ML BOTTLE BOTH EYES SCH ×3 (14:49→20:46)
--- NOTE | 2018-12-04 16:41 | Electrocardiograph Report ---
[place] [id number] Test Date: 2018-12-03 Pat Name: Maame Chavez Department: EXAM21 Room: 1A45 Gender: F Social Media Analyst: : 1985 Requested By: Dhaval Sams Order Number: [id number] Reading MD: Windy Glass Measurements Intervals [place] Rate: 122 P: 73 CT: 137 QRS: 63 QRSD: 79 T: 60 QT: 297 QTc: 424 Interpretive Statements Sinus tachycardia Possible Left ventricular hypertrophy or normal variant Electronically Signed On 12-04-2018 16:39:29 EDT by Windy Glass
[2018-12-04] MEDS: hydrOXYzine pamoate 25 MG CAPSULE PO PRN (20:46)
[2018-12-05] MEDS: Ibuprofen 400 MG TABLET PO PRN (01:18)
[2018-12-05] MEDS: (Cariprazine Hcl [Vraylar] 1.5 MG) PO SCH (11:23)
[2018-12-05] MEDS: Nicotine 21 MG PATCH.TD24 TD SCH (11:24)
[2018-12-05] MEDS: Artificial Tears SOLN 15 ML BOTTLE BOTH EYES SCH ×4 (11:25→22:41)
--- NOTE | 2018-12-05 11:47 | Psychiatry Progress Note ---
Date of Encounter: 12/05/18 Time of Encounter: 10:45 Subjective Interval history: Patient was seen in the room by this provider eating cereal. She reports that she is "good." She reports that she slept "okay," reporting that she was scared. She continues to report that she was raised to "be cautious." She shows ability for humor today, asking for "some back and body Works shit" for showering, stating that she was "being sarcastic." She was logical and linear during our interview and showed future orientation and self-care, wanting to shower. She was euthymic in mood and no verbalizations of suicidal or homicidal ideation as well as hallucinations were reported. Patient was not responding to internal stimuli. This provider's attending also saw the patient. She explains that patient was much less organized when she saw her. She reported improvement from yesterday, but with continued disorganization and tangentiality. Review of Systems Neurological: Reports: confusion Psychiatric: Reports: abnormal sleep pattern, confusion, difficulty concentrating. Denies: depression, anxiety, suicidal ideation, change in appetite, homicidal ideation, auditory hallucinations, visual hallucinations Results - Vital Signs Vital Signs: Temp Pulse Resp BP Pulse Ox 98.3 F 94 18 95/63 98 12/05/18 09:00 12/05/18 09:00 12/05/18 09:00 12/05/18 10:38 12/05/18 09:00 - Drug Levels and Toxicology Drug Levels and Toxicology: None noted this a.m. - Labs Labs: None noted this a.m. - Impressions None noted this a.m. 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 Status: Acute Plan: Continue hospitalization, Close observation, Suicide Precautions per unit protocol, Encourage participation in unit milieu, Group Therapy, Monitor sleep, Monitor appetite Additional Plan: -Patient continues to have hypotension while on the unit. Yesterday, she reported to this provider that she has low blood pressure and it does not bother her. However, yesterday she was an unreliable historian. She denies current symptoms of hypotension. As such we will continue to monitor her blood pressure but no medications will be given at this time. We are encouraging adequate hydration. -Due to current mental state and hypotension, will hold outpatient psychiatric medications at this time. We will determine if medication changes need to be made as patient gets further from the date of substance use. -Hold Bupropion SR 100mg PO BID for mood -Restart Suboxone 8mg/2mg SL BID for addiction -Hold Cariprazine 1.5mg PO Daily for mood -Continue Quetiapine 50mg PO QHS PRN for sleep and agitation -Continue quetiapine 100 mg by mouth every 6 hours when necessary for psychosis -Continue PRN Ziprasidone, Lorazepam, Diphenhydramine for agitation -Continue Hydroxyzine 25mg PO TID PRN for anxiety -Encourage group participation once more stable -Patient reports stable housing -Will further inquire about current mental health provider once more stable and less confused -Anticipated discharge once more psychiatrically stable Risks, benefits, side effects, alternatives discussed w/pt: Yes Patient agreeable to treatment: Yes Consult Discharge Plan - Plan Referrals: NONE,PCP [Primary Care Provider] - - Attending Attestation I examined this patient and my medical decision-making was reviewed with the Resident Physician. I agree with the documented findings, disposition and treatment plan as described except to the extent set forth below. Client has a fluctuating presentation at this time. Spoke with resident physician this morning and seemed improved. However, when she met with this verse writer and med student later in day she was elevated and irritable. She slammed door when entering room, terminated interview early, and slammed door when exiting room. She espoused a lot of paranoid thoughts including the belief that someone wants to kill her and her family. Thoughts were disjointed and she also made a couple of statements that were bizarre in nature. Demanded Wellbutrin and insisted this medication is being prescribed to her for paranoia and psychosis. Initially very upset when this verse writer stated Wellbutrin being held until her paranoia improves. Taking Vraylar from own supply. Blood pressure has been low in the mornings but client's BP usually able to tolerate Vraylar and Suboxone a little later in the day. Client did return to speak with this verse writer after taking Vraylar and Suboxone today and she was a little clearer. However, not yet ready to leave the hospital. Psychiatry Exam - Constitutional Vitals: Temp Pulse Resp BP Pulse Ox 98.3 F 94 18 95/63 98 12/05/18 09:00 12/05/18 09:00 12/05/18 09:00 12/05/18 10:38 12/05/18 09:00 General appearance: age & developmentally appropriate, unkempt, thin Additional observations: Appeared Older than stated age - Musculoskeletal Gait: normal Station: relaxed Strength & Tone: normal for patient (Grossly) - Psychiatric Patient Orientation: Yes Person, Yes Time, Yes Place Level of alertness: Alert, Follows commands Behavior: calm, cooperative Psychomotor activity: Normal Eye Contact: Maintains Eye Contact Mood Description: Euthymic/stable Patient description of mood: "Good" Affect description: congruent with mood, full range Speech Volume: Normal Speech pattern: normal rate, normal rhythm, normal tone, fluent, spontaneous Language & Vocabulary: consistent with education Thought Process: Linear, Tangential (Linear at times of tangentiality at other times during the day), Disorganized (Mild, intermittently throughout the day) Thought Content: No Suicidal ideation, No Homicidal ideation, No Overt delusions Perceptual Disturbances: No Reacting to internal stimuli, No Auditory hallucinations, No Visual hallucinations Attention Span Ability: Capable of Focused Attention Memory Description: Grossly Intact Patient Reliability: Questionable Historian Fund of knowledge: Yes aware of current events Intelligence Estimate: Average Judgment: Limited Insight: Partial
[2018-12-05] MEDS: hydrOXYzine pamoate 25 MG CAPSULE PO PRN (22:16)
[2018-12-06] MEDS: (Cariprazine Hcl [Vraylar] 1.5 MG) PO SCH (08:56)
[2018-12-06] MEDS: Nicotine 21 MG PATCH.TD24 TD SCH (08:56)
[2018-12-06] MEDS: Artificial Tears SOLN 15 ML BOTTLE BOTH EYES SCH ×4 (08:57→21:07)
--- NOTE | 2018-12-06 10:58 | Psychiatry Progress Note ---
Date of Encounter: 12/06/18 Time of Encounter: 10:52 Subjective Interval history: Looks better but still has a ways to go. Still coming down off of meth. Twitchy today. Still paranoid as well. Denied thinking anyone wants to harm her to this television writer but was recently telling other staff that she was fearful that someone wanted to hurt her and her family. Client was quick to say she is not ready to leave the hospital. Seemed to genuinely fear the idea of discharge vs. wanting to be in the hospital for other secondary gains. Believe she is still paranoid. However, she is starting to interact more and attend some groups. More open to the idea of rehab today. Has been living with her grandfather but admits this is not a safe place for her. Willing to consider rehab/residential placement so will start looking into options. Review of Systems Constitutional: Denies: fever, chills, weakness, weight change Eyes: Denies: eye pain, vision change Ears, Nose, Throat: Denies: ear pain, throat pain, dental pain, hearing loss, congestion Cardiovascular: Denies: chest pain, palpitations, dyspnea on exertion Respiratory: Denies: cough, dyspnea, wheezes Gastrointestinal: Denies: abdominal pain, nausea, vomiting, diarrhea, constipation Musculoskeletal: Denies: joint swelling, joint pain Neurological: Denies: headache, weakness, numbness, memory loss Psychiatric: Reports: abnormal sleep pattern, confusion, difficulty concentrating. Denies: depression, anxiety, suicidal ideation, change in appetite, homicidal ideation, auditory hallucinations, visual hallucinations Results - Vital Signs Vital Signs: Temp Pulse Resp BP Pulse Ox 98.4 F 81 16 90/60 95 12/06/18 09:00 12/06/18 09:00 12/06/18 09:00 12/06/18 09:00 12/06/18 09:00 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 Status: Acute Plan: Continue hospitalization, Close observation, Suicide Precautions per unit protocol, Encourage participation in unit milieu, Group Therapy, Monitor sleep, Monitor appetite Risks, benefits, side effects, alternatives discussed w/pt: Yes Patient agreeable to treatment: Yes Consult Discharge Plan - Plan Referrals: NONE,PCP [Primary Care Provider] - Psychiatry Exam - Constitutional Vitals: Temp Pulse Resp BP Pulse Ox 98.4 F 81 16 90/60 95 12/06/18 09:00 12/06/18 09:00 12/06/18 09:00 12/06/18 09:00 12/06/18 09:00 General appearance: disheveled - Musculoskeletal Gait: normal Station: relaxed Strength & Tone: normal for patient - Psychiatric Patient Orientation: Yes Person, Yes Time, Yes Place Level of alertness: Alert Behavior: cooperative Psychomotor activity: Increased Eye Contact: Maintains Eye Contact Mood Description: Anxious Affect description: congruent with mood Speech Volume: Normal Speech pattern: normal rate, normal rhythm, normal tone, fluent, spontaneous Language & Vocabulary: consistent with education Thought Process: Linear Thought Content: No Suicidal ideation, No Homicidal ideation, Yes Overt delusions, Yes Paranoid delusion Perceptual Disturbances: No Auditory hallucinations, No Visual hallucinations Attention Span Ability: Capable of Focused Attention Memory Description: Grossly Intact Patient Reliability: Questionable Historian Fund of knowledge: Yes abstraction ability Intelligence Estimate: Average Judgment: Limited Insight: Minimal
[2018-12-07] MEDS: traZODone 50 MG TABLET PO PRN (00:53)
[2018-12-07] MEDS: Nicotine 21 MG PATCH.TD24 TD SCH (09:00)
[2018-12-07] MEDS: Artificial Tears SOLN 15 ML BOTTLE BOTH EYES SCH ×4 (09:01→20:32)
[2018-12-07] MEDS: (Cariprazine Hcl [Vraylar] 1.5 MG) PO SCH ×2 (09:01→11:19)
--- NOTE | 2018-12-07 11:28 | Psychiatry Progress Note ---
Date of Encounter: 12/07/18 Time of Encounter: 10:00 Subjective Interval history: Patient was seen in bed this morning. She appeared drowsy when awoken and did not wake up fully. She was more irritable than seen previously today, stating that she "needs her Wellbutrin." She states that she does not want to be on Cariprazine anymore, reporting that it is never helped. She explains reason for increased sleep is that she took a trazodone 3 AM. She reports that her depression today is worse and that is why she also is sleeping so much. She reports that her anxiety is the same as when she came in. As denied paranoia today. Met that her mind is clear today. He reports the need for Wellbutrin being that she is able to "get up and do stuff." She has reports this medication "takes the depression out." She denies issues of appetite or side effects to medications. She denies SI, HI, AH, VH. When asked if she wanted to still consider rehab, she reports "if I get my Wellbutrin." Review of Systems Psychiatric: Reports: depression, anxiety, abnormal sleep pattern, difficulty concentrating (Improved). Denies: suicidal ideation, change in appetite, homicidal ideation, auditory hallucinations, visual hallucinations Endocrine: Reports: fatigue (Sleeping most of her time here) Results - Vital Signs Vital Signs: Temp Pulse Resp BP Pulse Ox 98.8 F 78 16 106/69 96 12/07/18 09:00 12/07/18 09:00 12/07/18 09:00 12/07/18 09:00 12/07/18 09:00 - Drug Levels and Toxicology Drug Levels and Toxicology: None noted this a.m. - Labs Labs: None noted this a.m. 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 Status: Acute Plan: Continue hospitalization, Close observation, Suicide Precautions per unit protocol, Encourage participation in unit milieu, Group Therapy, Monitor sleep, Monitor appetite Additional Plan: -Although clear, patient continues to show sequelae of substance abuse, including now subacute withdrawal with increased sleep and dysphoria -Hold Bupropion SR 100mg PO BID for mood at this time -Continue Suboxone 8mg/2mg SL BID for addiction -Continue Cariprazine 1.5mg PO Daily for mood -Continue Quetiapine 50mg PO QHS PRN for sleep and agitation -Continue quetiapine 100 mg by mouth every 6 hours when necessary for psychosis -Continue PRN Ziprasidone, Lorazepam, Diphenhydramine for agitation -Continue Hydroxyzine 25mg PO TID PRN for anxiety -Encourage group participation once more stable -Patient reports stable housing -Patient is considering substance abuse rehabilitation at this time -Anticipated discharge once more psychiatrically stable Risks, benefits, side effects, alternatives discussed w/pt: No (No changes today ) Patient agreeable to treatment: Yes Consult Discharge Plan - Plan Referrals: NONE,PCP [Primary Care Provider] - - Attending Attestation I examined this patient and my medical decision-making was reviewed with the Resident Physician. I agree with the documented findings, disposition and treatment plan as described except to the extent set forth below. 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 Irritable. Demanding Wellbutrin. Likes stimulant effects of medication. Refusing to talk about discharge, rehab, or anything else until she gets Wellbutrin. Was still paranoid yesterday. Unable to fully assess paranoia today as client was singularly focused on medication. Attempted to call her outpatient provider, Renee Johnston, with client present today but had to leave a message. Psychiatry Exam - Constitutional Vitals: Temp Pulse Resp BP Pulse Ox 98.8 F 78 16 106/69 96 12/07/18 09:00 12/07/18 09:00 12/07/18 09:00 12/07/18 09:00 12/07/18 09:00 General appearance: age & developmentally appropriate, well-groomed, well- nourished, thin Additional observations: Tattoos seen today. Dark eye makeup noted today - Musculoskeletal Gait: other (Not assessed) Station: relaxed Strength & Tone: normal for patient (Grossly) - Psychiatric Patient Orientation: Yes Person, Yes Time, Yes Place, Yes Circumstance Level of alertness: Alert (But Drowsy), Follows commands Behavior: calm, cooperative Psychomotor activity: Normal Eye Contact: Minimal Contact (Due to facing away from this provider) Mood Description: Irritable Affect description: congruent with mood, full range Speech Volume: Normal Speech pattern: normal rate, normal rhythm, normal tone, fluent, spontaneous Language & Vocabulary: consistent with education Thought Process: Logical, Linear, Goal Oriented Thought Content: No Suicidal ideation, No Homicidal ideation, No Overt delusions Perceptual Disturbances: No Reacting to internal stimuli, No Auditory hallucinations, No Visual hallucinations Attention Span Ability: Capable of Focused Attention Memory Description: Grossly Intact Patient Reliability: Reliable Historian Fund of knowledge: Yes abstraction ability, Yes aware of current events Intelligence Estimate: Average Judgment: Limited Insight: Partial
[2018-12-07] MEDS: hydrOXYzine pamoate 25 MG CAPSULE PO PRN (20:01)
[2018-12-08] MEDS: Ibuprofen 400 MG TABLET PO PRN ×2 (05:36→20:36)
[2018-12-08] MEDS: (Cariprazine Hcl [Vraylar] 1.5 MG) PO SCH (08:34)
[2018-12-08] MEDS: Artificial Tears SOLN 15 ML BOTTLE BOTH EYES SCH ×4 (08:35→23:30)
[2018-12-08] MEDS: Nicotine 21 MG PATCH.TD24 TD SCH (08:35)
--- NOTE | 2018-12-08 10:00 | Psychiatry Progress Note ---
Date of Encounter: 12/08/18 Time of Encounter: 09:57 Subjective Interval history: Looks better today. Pleasant. Less irritable. No longer feeling paranoid. Not expressing any delusional beliefs. Still wants to take Wellbutrin. Will restart this today. Client agrees to continue with the Vraylar as well. Wanting to go to rehab. Willing to start contacting places herself today. Staff will give her a list of places to call. Can be discharged as soon as a rehab bed is available for her. Denies SI/HI and no longer psychotic. Has nowhere safe to go and will relapse on meth if she goes to the streets. A residential placement with AOD services is the best option. Review of Systems Constitutional: Denies: fever, chills, weakness, weight change Eyes: Denies: eye pain, vision change Ears, Nose, Throat: Denies: ear pain, throat pain, dental pain, hearing loss, congestion Cardiovascular: Denies: chest pain, palpitations, dyspnea on exertion Respiratory: Denies: cough, dyspnea, wheezes Gastrointestinal: Denies: abdominal pain, nausea, vomiting, diarrhea, constipation Musculoskeletal: Denies: joint swelling, joint pain Neurological: Denies: headache, weakness, numbness, memory loss Psychiatric: Reports: depression, anxiety, abnormal sleep pattern, difficulty concentrating (Improved). 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 Status: Acute Plan: Continue hospitalization, Close observation, Suicide Precautions per unit protocol, Encourage participation in unit milieu, Group Therapy, Monitor sleep, Monitor appetite Risks, benefits, side effects, alternatives discussed w/pt: No (No changes today) Patient agreeable to treatment: Yes Consult Discharge Plan - Plan Referrals: NONE,PCP [Primary Care Provider] - Psychiatry Exam - Constitutional Vitals: Temp Pulse Resp BP Pulse Ox 97.3 F L 74 16 94/61 95 12/08/18 09:00 12/08/18 09:00 12/08/18 09:00 12/08/18 09:00 12/08/18 09:00 General appearance: disheveled - Musculoskeletal Gait: normal Station: relaxed Strength & Tone: normal for patient - Psychiatric Patient Orientation: Yes Person, Yes Time, Yes Place Level of alertness: Alert Behavior: calm, cooperative Psychomotor activity: Normal Eye Contact: Maintains Eye Contact Mood Description: Depressed Affect description: full range Speech Volume: Normal Speech pattern: normal rate, normal rhythm, normal tone, fluent, spontaneous Language & Vocabulary: consistent with education Thought Process: Linear, Goal Oriented Thought Content: No Suicidal ideation, No Homicidal ideation, No Overt delusions Perceptual Disturbances: No Auditory hallucinations, No Visual hallucinations Attention Span Ability: Capable of Focused Attention Memory Description: Immediate Intact, Recent Impaired, Remote Intact Patient Reliability: Questionable Historian Fund of knowledge: Yes abstraction ability, Yes aware of current events Intelligence Estimate: Average Judgment: Limited Insight: Partial
[2018-12-08] MEDS: BuPROPion XL (24 HR) 150 MG TABLET PO SCH (11:44)
[2018-12-08] MEDS: traZODone 50 MG TABLET PO PRN (20:36)
[2018-12-08] MEDS: hydrOXYzine pamoate 25 MG CAPSULE PO PRN (20:37)
[2018-12-09] MEDS: (Cariprazine Hcl [Vraylar] 1.5 MG) PO SCH (08:52)
[2018-12-09] MEDS: BuPROPion XL (24 HR) 150 MG TABLET PO SCH (08:52)
[2018-12-09] MEDS: Nicotine 21 MG PATCH.TD24 TD SCH (08:53)
[2018-12-09] MEDS: Artificial Tears SOLN 15 ML BOTTLE BOTH EYES SCH ×4 (09:06→20:40)
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
[2018-12-09] MEDS: hydrOXYzine pamoate 25 MG CAPSULE PO PRN (20:40)
[2018-12-10] MEDS: Artificial Tears SOLN 15 ML BOTTLE BOTH EYES SCH ×4 (08:51→21:31)
[2018-12-10] MEDS: (Cariprazine Hcl [Vraylar] 1.5 MG) PO SCH (08:53)
[2018-12-10] MEDS: BuPROPion XL (24 HR) 150 MG TABLET PO SCH (08:53)
[2018-12-10] MEDS: Nicotine 21 MG PATCH.TD24 TD SCH (08:54)
--- NOTE | 2018-12-10 09:03 | Psychiatry Progress Note ---
Date of Encounter: 12/10/18 Time of Encounter: 09:01 Subjective Interval history: Met with patient with resident. Patient initially said that the Wellbutrin was "going well" and said she was not having any side effects. However when we began discussing discharge planning and if she had called any of the substance use treatment centers that she had been given information for she started to say that she "did not feel good" she had difficulty explaining this further she later said that she did not feel good "emotionally" and that she was feeling depressed. This further that she really needed to follow-up with the recommendation to call further treatment facilities to address her substance use disorder and she said she would follow this recommendation. According to staff she has been minimally participating in treatment and has been manipulative. Review of Systems Constitutional: Denies: fever Eyes: Denies: eye pain Ears, Nose, Throat: Denies: ear pain Cardiovascular: Denies: chest pain Respiratory: Denies: cough Gastrointestinal: Denies: abdominal pain Genitourinary male: Denies: urgency Musculoskeletal: Denies: back pain Integumentary: Denies: rash Neurological: Denies: headache Psychiatric: Reports: depression, anxiety, abnormal sleep pattern, difficulty concentrating (Improved). Denies: suicidal ideation, change in appetite, homicidal ideation, auditory hallucinations, visual hallucinations Endocrine: Reports: fatigue Results - Vital Signs Vital Signs: Temp Pulse Resp BP Pulse Ox 98.3 F 86 16 101/64 97 12/09/18 19:53 12/09/18 19:53 12/09/18 19:53 12/09/18 19:53 12/09/18 19:53 Assessment and Plan (1) Drug-induced psychotic disorder Current visit: No Status: Resolved Plan: Continue hospitalization, Close observation, Suicide Precautions per unit protocol, Encourage participation in unit milieu, Group Therapy, Monitor sleep, Monitor appetite Additional Plan: Continue Wellbutrin. I encouraged her to reach out to long-term AODA treatment facilities. Encourage group attendance. Risks, benefits, side effects, alternatives discussed w/pt: Yes Patient agreeable to treatment: Yes Qualifiers: Complication of substance-induced condition: with hallucinations Qualified Code(s): F19.951 - Other psychoactive substance use, unspecified with psychoactive substance-induced psychotic disorder with hallucinations Consult Discharge Plan - Plan Referrals: NONE,PCP [Primary Care Provider] - Psychiatry Exam - Constitutional Vitals: Temp Pulse Resp BP Pulse Ox 98.3 F 86 16 101/64 97 12/09/18 19:53 12/09/18 19:53 12/09/18 19:53 12/09/18 19:53 12/09/18 19:53 General appearance: age & developmentally appropriate, disheveled - Musculoskeletal Gait: slow Station: stooped Strength & Tone: normal for patient - Psychiatric Patient Orientation: Yes Person, Yes Time, Yes Place, Yes Circumstance Level of alertness: Alert Behavior: uncooperative Psychomotor activity: Slowed Eye Contact: Minimal Contact Mood Description: Depressed Patient description of mood: "Depressed" Speech Volume: Soft/Quiet Speech pattern: normal rate Language & Vocabulary: consistent with education Thought Process: Intact Thought Content: No Suicidal ideation Perceptual Disturbances: No Reacting to internal stimuli, No Auditory hallucinations Memory Description: Grossly Intact Patient Reliability: Questionable Historian Fund of knowledge: Yes average Intelligence Estimate: Average Judgment: Fair Insight: Partial
[2018-12-10] MEDS: Ibuprofen 400 MG TABLET PO PRN (21:29)
[2018-12-10] MEDS: hydrOXYzine pamoate 25 MG CAPSULE PO PRN (21:29)
[2018-12-11] MEDS: (Cariprazine Hcl [Vraylar] 1.5 MG) PO SCH (08:30)
[2018-12-11] MEDS: BuPROPion XL (24 HR) 150 MG TABLET PO SCH (08:30)
[2018-12-11] MEDS: Nicotine 21 MG PATCH.TD24 TD SCH (08:31)
[2018-12-11] MEDS: Artificial Tears SOLN 15 ML BOTTLE BOTH EYES SCH ×4 (08:32→21:11)
--- NOTE | 2018-12-11 10:50 | Psychiatry Progress Note ---
Date of Encounter: 12/11/18 Time of Encounter: 09:30 Subjective Interval history: Patient was initially laying in her bed. She was logical and linear in speech today. She reports that she will have a ride tomorrow, and is excited to leave. She states that she is "pretty good." She reports issues with sleep, saying that she is up all night and sleeps all day. She reports that she feels this is due to medication. She denies issues with depression, anxiety, and appetite. She denies side effects to medication. She denies SI, HI, AH, and VH. Review of Systems Psychiatric: Reports: anxiety, abnormal sleep pattern. Denies: depression, suicidal ideation, change in appetite, homicidal ideation, auditory hallucinations, visual hallucinations, confusion, difficulty concentrating Allergic/Immunologic: Denies: facial swelling Results - Vital Signs Vital Signs: Temp Pulse Resp BP Pulse Ox 98.9 F 67 16 71/47 96 12/11/18 09:00 12/11/18 09:00 12/11/18 09:00 12/11/18 09:00 12/11/18 09:00 - Drug Levels and Toxicology Drug Levels and Toxicology: None noted this a.m. - Labs Labs: None noted this a.m. - Impressions None noted this a.m. 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 Status: Acute Plan: Continue hospitalization, Close observation, Suicide Precautions per unit protocol, Encourage participation in unit milieu, Group Therapy, Monitor sleep, Monitor appetite Additional Plan: -Continue Bupropion XL 150 mg by mouth daily for mood -Continue Suboxone 8mg/2mg SL BID for addiction -Continue Cariprazine 1.5mg PO Daily for mood -Continue Quetiapine 50mg PO QHS PRN for sleep and agitation -Continue quetiapine 100 mg by mouth every 6 hours when necessary for psychosis -Continue PRN Ziprasidone, Lorazepam, Diphenhydramine for agitation -Continue Hydroxyzine 25mg PO TID PRN for anxiety -Encourage group participation -Patient reports stable housing -Patient declines substance abuse treatment at this time -Anticipated discharge for tomorrow Risks, benefits, side effects, alternatives discussed w/pt: No (No changes today) Patient agreeable to treatment: Yes Consult Discharge Plan - Plan Referrals: NONE,PCP [Primary Care Provider] - - Attending Attestation I examined this patient and my medical decision-making was reviewed with the Resident Physician. I agree with the documented findings, disposition and treatment plan as described except to the extent set forth below. Psychiatry Exam - Constitutional Vitals: Temp Pulse Resp BP Pulse Ox 98.9 F 67 16 71/47 96 12/11/18 09:00 12/11/18 09:00 12/11/18 09:00 12/11/18 09:00 12/11/18 09:00 General appearance: age & developmentally appropriate, well-groomed, well- nourished, thin Additional observations: Seen with hoodie and blanket covering head - Musculoskeletal Gait: other (Not assessed) Station: relaxed Strength & Tone: normal for patient (Grossly) - Psychiatric Patient Orientation: Yes Person, Yes Time, Yes Place, Yes Circumstance Level of alertness: Alert (Drowsy from sleep), Follows commands Behavior: calm, cooperative Psychomotor activity: Normal Eye Contact: No Eye Contact Mood Description: Euthymic/stable Patient description of mood: "Pretty good" Affect description: congruent with mood, full range Speech Volume: Normal Speech pattern: normal rate, normal rhythm, normal tone, fluent, spontaneous Language & Vocabulary: consistent with education Thought Process: Logical, Linear, Goal Oriented Thought Content: No Suicidal ideation, No Homicidal ideation, No Overt delusions Perceptual Disturbances: No Reacting to internal stimuli, No Auditory hallucinations, No Visual hallucinations Attention Span Ability: Capable of Focused Attention Memory Description: Grossly Intact Patient Reliability: Reliable Historian Fund of knowledge: Yes abstraction ability, Yes aware of current events Intelligence Estimate: Average Judgment: Fair Insight: Partial
--- NOTE | 2018-12-12 08:06 | Discharge Summary ---
Date of Encounter: 12/12/18 Time of Encounter: 08:02 Diagnosis - Discharge Diagnosis (1) Methamphetamine-induced psychotic disorder Status: Acute Medications - Discharge Medications Prescriptions: BuPROPion XL (24 HR) [Wellbutrin Xl] 150 mg PO DAILY #30 tab.er.24h hydrOXYzine pamoate [HydrOXYzine Pamoate] 25 mg PO TID PRN #90 capsule PRN Reason: Anxiety Quetiapine Fumarate [Seroquel] 100 mg PO Q6H PRN #30 tablet PRN Reason: Anxiety traZODone [TraZODone] 50 mg PO HS PRN #30 tablet PRN Reason: Sleep Buprenorphine HCl/Naloxone HCl [Suboxone 8 mg-2 mg Sl Film] 1 each SL BID 12/03/18 [History] Cariprazine HCl [Vraylar] 1.5 mg PO DAILY 12/03/18 [History] BuPROPion XL (24 HR) [Wellbutrin Xl] 150 mg PO DAILY #30 tab.er.24h 12/12/18 [Rx] Quetiapine Fumarate [Seroquel] 100 mg PO Q6H PRN #30 tablet 12/12/18 [Rx] hydrOXYzine pamoate [HydrOXYzine Pamoate] 25 mg PO TID PRN #90 capsule 12/12/18 [Rx] traZODone [TraZODone] 50 mg PO HS PRN #30 tablet 12/12/18 [Rx] Allergy/AdvReac Type Severity Reaction Status Date / Time codeine Allergy Rash Verified 12/03/18 03:23 haloperidol [From Haldol] Allergy See Verified 12/03/18 03:23 Comments Penicillins Allergy See Verified 12/03/18 03:23 Comments prednisone Allergy Rash Verified 12/03/18 03:23 Results Procedures and tests throughout hospitalization: Completed Lab Orders Category Date Time Status Urinalysis Reflex Cult & Micro [URIN] Stat Lab 12/03/18 09:23 Completed Urine tox screen [Drug Screen, Urine] [UCHEM] Stat Lab 12/03/18 09:26 Completed Provider Date of admission: 12/03/18 13:06 Primary care physician: PCP NONE Discharging clinician: Sabrina Pimentel Psychiatry Exam - Constitutional Vitals: Temp Pulse Resp BP Pulse Ox 98.8 F 76 20 92/59 100 12/11/18 20:23 12/11/18 20:23 12/11/18 20:23 12/11/18 20:23 12/11/18 20:23 General appearance: age & developmentally appropriate, well-groomed, well- nourished - Musculoskeletal Gait: normal Station: relaxed Strength & Tone: normal for patient - Psychiatric Patient Orientation: Yes Person, Yes Time, Yes Place Level of alertness: Alert Behavior: calm, cooperative Psychomotor activity: Normal Eye Contact: Maintains Eye Contact Mood Description: Euthymic/stable Affect description: congruent with mood, full range Speech Volume: Normal Speech pattern: normal rate, normal rhythm, normal tone, fluent, spontaneous Language & Vocabulary: consistent with education Thought Process: Linear, Goal Oriented Thought Content: No Suicidal ideation, No Homicidal ideation, No Overt delusions Perceptual Disturbances: No Auditory hallucinations, No Visual hallucinations Attention Span Ability: Capable of Focused Attention Memory Description: Grossly Intact Patient Reliability: Reliable Historian Fund of knowledge: Yes abstraction ability, Yes aware of current events Intelligence Estimate: Average Judgment: Good Insight: Full Hospital Course Hospital course: Ms. Chavez is a 33 year old female who was admitted for ampheatmine induced psychosis. She was started on PRN seroquel and her wellbutrin was re-started for some depressive symptoms. Patient was educated of diagnosis and the risk- benefit side effects of this alternative treatment options and was monitored for responsiveness and side effects. Mood anxiety sleep and appetite interest improved as did future orientation. Self-harm thoughts subsided, thinking cleared, psychosis resolved, and mood stabilized. Patient was able to attend both individual and group therapy sessions as well as meet with the psychiatrist daily and urged to discuss any medication or treatment issues or other concerns. The patient was educated primarily by verbal means about their diagnosis and manifestations in their life. The option for treatment including group and individual therapy programming was offered to the patient in addition to the use of medications with all their potential risks, benefits, and side effects as well as the risks of not taking medication and non-adhereance were discussed with the patient at length. The patient was given the opportunity to ask questions and was noted to participate in the treatment in the planning process. The patient felt ready and eager to be discharged from the inpatient psychiatric unit to continue on with treatment as an outpatient. The patient agreed that is they were safe for this disposition. The patient was considered to be able to participate in informed consent and decision making with respect to medical, legal, and financial issues of the time of discharge. At the time of discharge the patient adamantly denied any concerns for lethality including suicidal or homicidal thoughts ideations or plans and was future oriented toward ongoing mental health care, medical follow-up and sobriety. Time spent discussing smoking cessation with patient: 3 to 10 minutes Does patient wish to continue nicotine replacement upon disc: No - Time Spent with Patient Total time spent providing and/or coordinating discharge services: 25 minutes Less than 30 minutes Specific discharge activities: Interval history reviewed. Available labs reviewed . Psychotherapy provided. Patient had an opportunity to ask questions and address concerns. Patient was in agreement with the treatment plan. The risks benefits and side effects of medications were discussed with the patient, including alternatives and treatment. The patient was educated on the abstaining from any alcohol or illicit substances, following up with all scheduled appointments, and taking all medications as prescribed. The patient was educated on 90 meetings in 90 days and to find a sponsor. Assessment and Plan - Patient/Caregiver Discharge Instructions Activity: resume usual activities as tolerated Diet: regular diet Additional Instructions: Continue current medications. Follow up with outpatient mental health. Encourage continued therapy in a group or individual setting. The patient was discharged to home. - Follow up Plan Follow up with: NONE,PCP [Primary Care Provider] - Overall status at discharge: Stable Disposition: Home, Self-Care Quality - Multiple Antipsychotics Patient discharged on 2 or more antipsychotic medications: No Procedures - Procedures Procedures: Medication Management, Crisis Stabilization, Supportive Therapy, Group Therapy, Psychoeducational Therapy
[2018-12-12] MEDS: BuPROPion XL (24 HR) 150 MG TABLET PO SCH (09:06)
[2018-12-12] MEDS: Nicotine 21 MG PATCH.TD24 TD SCH (09:06)
[2018-12-12] MEDS: (Cariprazine Hcl [Vraylar] 1.5 MG) PO SCH (09:08)
[2018-12-12] MEDS: Artificial Tears SOLN 15 ML BOTTLE BOTH EYES SCH ×2 (09:08→13:01)
[2018-12-12 10:38] VITALS: BP 79/55
== END 2018-12-12 15:20 | disposition home or self-care (01) | DRG 776 ==
LOC: EMEROOARM 08:37 → 1ANU 13:06 → SUATTDRO 13:06 → 1ANU 16:54
PROVIDERS: ADMIT Psychiatry & Neurology Psychiatry; ATTEND Psychiatry & Neurology Psychiatry

== ENCOUNTER 2020-01-09 09:59 | Inpatient (IN) ==
[2020-01-09 10:42] LABS: Bilirubin,Urine Small (Negative); Blood,Urine Negative (Negative); Clarity,Urine Turbid (Clear); Color,Urine Dark Yellow (Yellow); Glucose,Urine (UA) Normal (Normal); Ketones,Urine 80 mg/dL (Negative); Leukocyte Esterase,Urine Moderate (Negative); Nitrite,Urine Positive (Negative); Protein,Urine 30 mg/dL (Neg-Trace); Specific Gravity,Urine > 1.030 (1.010-1.025); Urobilinogen,Urine Normal (Normal)
[2020-01-09 10:45] LABS: Bacteria,Urine Many per hpf (None-Few); Squamous Epithelial Cell,Urine Many per lpf (None-Few); WBC,Urine TNTC per hpf (0-3)
[2020-01-09 10:50] LABS: Basophils % 0.3 %; Eosinophils # 0.1 K/mcL (0.0-0.6); Hematocrit 40.3 % (35.3-44.9); Hemoglobin 13.3 g/dL (11.5-15.4); Immature Granulocytes % 0.4 % (0-4); Lymphocytes # 2.5 K/mcL (0.6-4.6); Lymphocytes % 20.5 %; Mean Corpuscular Hemoglobin 28.4 pg (28.0-33.3); Mean Corpuscular Volume 86.1 fL (83.0-100.0); Mean Platelet Volume 9.9 fL (9.4-12.4); Monocytes # 0.8 K/mcL (0.0-1.3); Monocytes % 6.4 %; Neutrophils # 8.5 K/mcL (1.6-8.9); Platelet Count 386 K/mcL (140-400); Red Blood Count 4.68 M/mcL (3.82-4.97); Red Cell Distribution Width 12.6 % (11.5-14.5); Segmented Neutrophils % 71.4 %; White Blood Count 11.9 K/mcL (4.3-11.1)
[2020-01-09 11:03] LABS: Amphetamine Screen,Urine Negative ng/mL (Cutoff=1000); Barbiturate Screen,Urine Negative ng/mL (Cutoff=200); Benzodiazepines Screen,Urine Negative ng/mL (Cutoff=200); Cannabinoid Screen,Urine Negative ng/mL (Cutoff = 50); Cocaine Screen,Urine Negative ng/mL (Cutoff= 300); Opiate Screen,Urine Negative ng/mL (Cutoff=300); Phencyclidine Screen,Urine Negative ng/mL (Cutoff=25)
[2020-01-09 11:08] LABS: Acetaminophen < 10 mcg/mL (10-20); BUN/Creatinine Ratio 35 (6-26); Blood Urea Nitrogen 25 mg/dL (6-20); Calcium 9.2 mg/dL (8.6-10.3); Carbon Dioxide 26 mEq/L (23-29); Chloride 104 mEq/L (98-107); Ethanol < 10 mg/dL (Less than 10); Glucose 102 mg/dL (70-105); Osmolality,Calculated 289 (280-300); Salicylate < 2.5 mg/dL (15.0-30.0); Sodium 137 mEq/L (136-145); eGFR For African Americans > 60 (> 60); eGFR For Non-African Americans > 60 (> 60)
[2020-01-09] MEDS ORDERED: Nitrofurantoin (BID) 100 MG CAPSULE PO STA (11:16)
[2020-01-09] MEDS ORDERED: Potassium Chloride Elixir 20 MEQ/15 ML UDC PO ONE (11:18)
[2020-01-09] MEDS ORDERED: Haloperidol Lactate 5 MG/ML VIAL IM PRN (13:10)
[2020-01-09] MEDS ORDERED: *HR* LORazepam 2 MG/ML VIAL IM PRN (13:10)
[2020-01-09] MEDS ORDERED: MOM Conc 10 ML UD.LIQ PO PRN (13:10)
[2020-01-09] MEDS ORDERED: Mag Hydrox/Al Hydrox/Simeth 30 ML UDC PO PRN (13:10)
[2020-01-09] MEDS: Nitrofurantoin (BID) 100 MG CAPSULE PO SCH (18:48)
[2020-01-09] MEDS: traZODone 50 MG TABLET PO PRN ×2 (20:15→23:51)
[2020-01-09] MEDS: hydrOXYzine pamoate 25 MG CAPSULE PO PRN (23:51)
[2020-01-10] MEDS: Nicotine 14 MG PATCH.TD24 TD SCH (10:20)
[2020-01-10] MEDS: Nitrofurantoin (BID) 100 MG CAPSULE PO SCH ×3 (10:20→21:42)
[2020-01-10] MEDS: QUEtiapine Fumarate 25 MG TABLET PO SCH (10:51)
[2020-01-10] MEDS: QUEtiapine Fumarate 100 MG TABLET PO SCH ×2 (21:21→21:43)
[2020-01-10] MEDS: hydrOXYzine pamoate 25 MG CAPSULE PO PRN (21:42)
[2020-01-10] MEDS: traZODone 50 MG TABLET PO PRN (21:43)
[2020-01-11] MEDS: QUEtiapine Fumarate 25 MG TABLET PO SCH (10:26)
[2020-01-11] MEDS: Nitrofurantoin (BID) 100 MG CAPSULE PO SCH ×2 (10:26→16:46)
[2020-01-11] MEDS: Nicotine 14 MG PATCH.TD24 TD SCH (10:26)
[2020-01-11] MEDS: QUEtiapine Fumarate 100 MG TABLET PO SCH (20:05)
[2020-01-12] MEDS: Nitrofurantoin (BID) 100 MG CAPSULE PO SCH ×2 (09:52→17:45)
[2020-01-12] MEDS: QUEtiapine Fumarate 25 MG TABLET PO SCH (09:52)
[2020-01-12] MEDS: Nicotine 14 MG PATCH.TD24 TD SCH (09:53)
[2020-01-12] MEDS: haloperidoL 5 MG TABLET PO PRN (13:04)
[2020-01-12] MEDS: *HR* LORazepam 1 MG TABLET PO PRN (13:04)
[2020-01-12] MEDS: QUEtiapine Fumarate 100 MG TABLET PO SCH (20:44)
[2020-01-12] MEDS: traZODone 50 MG TABLET PO PRN (20:44)
[2020-01-13] MEDS: Nicotine 14 MG PATCH.TD24 TD SCH (10:19)
[2020-01-13] MEDS: Nitrofurantoin (BID) 100 MG CAPSULE PO SCH ×2 (10:20→17:40)
[2020-01-13] MEDS: QUEtiapine Fumarate 25 MG TABLET PO SCH (10:20)
[2020-01-13] MEDS: *HR* LORazepam 1 MG TABLET PO PRN (10:21)
[2020-01-13] MEDS: haloperidoL 5 MG TABLET PO PRN (10:21)
[2020-01-13] MEDS: QUEtiapine Fumarate 100 MG TABLET PO SCH (20:41)
[2020-01-13] MEDS: Acetaminophen 325 MG TABLET PO PRN (20:41)
[2020-01-13] MEDS: hydrOXYzine pamoate 25 MG CAPSULE PO PRN (20:41)
[2020-01-14] MEDS: Acetaminophen 325 MG TABLET PO PRN (00:56)
[2020-01-14] MEDS: hydrOXYzine pamoate 25 MG CAPSULE PO PRN ×2 (00:57→20:18)
[2020-01-14] MEDS: Nitrofurantoin (BID) 100 MG CAPSULE PO SCH ×2 (09:35→18:39)
[2020-01-14] MEDS: QUEtiapine Fumarate 25 MG TABLET PO SCH (09:35)
[2020-01-14] MEDS: haloperidoL 5 MG TABLET PO PRN (09:35)
[2020-01-14] MEDS: *HR* LORazepam 1 MG TABLET PO PRN (09:35)
[2020-01-14] MEDS: Nicotine 14 MG PATCH.TD24 TD SCH (09:40)
[2020-01-14] MEDS: QUEtiapine Fumarate 300 MG TABLET PO SCH (20:18)
[2020-01-14] MEDS: traZODone 50 MG TABLET PO PRN ×2 (20:18→22:02)
[2020-01-15] MEDS: hydrOXYzine pamoate 25 MG CAPSULE PO PRN ×2 (02:23→20:26)
[2020-01-15] MEDS: QUEtiapine Fumarate 25 MG TABLET PO SCH (08:29)
[2020-01-15] MEDS: Nitrofurantoin (BID) 100 MG CAPSULE PO SCH ×2 (08:29→16:42)
[2020-01-15] MEDS: Nicotine 14 MG PATCH.TD24 TD SCH (08:30)
[2020-01-15] MEDS: BuPROPion XL (24 HR) 150 MG TABLET PO SCH (09:11)
[2020-01-15] MEDS: Acetaminophen 325 MG TABLET PO PRN (16:47)
[2020-01-15] MEDS: QUEtiapine Fumarate 300 MG TABLET PO SCH (20:25)
[2020-01-15] MEDS: traZODone 50 MG TABLET PO PRN (20:26)
[2020-01-16] MEDS: BuPROPion XL (24 HR) 150 MG TABLET PO SCH (09:14)
[2020-01-16] MEDS: Nitrofurantoin (BID) 100 MG CAPSULE PO SCH (09:14)
[2020-01-16] MEDS: QUEtiapine Fumarate 25 MG TABLET PO SCH (09:16)
[2020-01-16] MEDS: Acetaminophen 325 MG TABLET PO PRN (09:17)
[2020-01-16] MEDS: Nicotine 14 MG PATCH.TD24 TD SCH (09:18)
[2020-01-16 09:44] VITALS: BP 91/66
== END 2020-01-16 16:40 | disposition home or self-care (01) ==
LOC: EMEROOARM 09:59 → 1ANU 12:47 → SUATTDRO 13:10 → 1ANU 13:37
PROVIDERS: ADMIT Psychiatry & Neurology Psychiatry; ATTEND Psychiatry & Neurology Psychiatry

== ENCOUNTER 2021-09-20 23:39 | Inpatient (IN) ==
[2021-09-21 00:32] LABS: Bilirubin,Urine Negative (Negative); Blood,Urine Moderate (Negative); Clarity,Urine Clear (Clear); Color,Urine Light-Yellow (Yellow); Glucose,Urine (UA) Normal (Normal); Ketones,Urine Negative (Negative); Leukocyte Esterase,Urine Negative (Negative); Mucus,Urine Few per lpf (None-Few); Nitrite,Urine Negative (Negative); PH,Urine 6.5 pH Units (5.0-8.0); Protein,Urine Trace mg/dL (Neg-Trace); RBC,Urine 0-3 per hpf (0-3); Specific Gravity,Urine 1.023 (1.010-1.025); Squamous Epithelial Cell,Urine Few per hpf (None-Few); Urobilinogen,Urine Normal (Normal)
[2021-09-21 00:36] LABS: Basophils % 0.4 %; Eosinophils # 0.5 K/mcL (0.0-0.6); Eosinophils % 4.7 %; Hematocrit 34.4 % (35.3-44.9); Hemoglobin 11.6 g/dL (11.5-15.4); Immature Granulocytes % 0.4 % (0-4); Lymphocytes # 4.2 K/mcL (0.6-4.6); Lymphocytes % 39.5 %; Mean Corpuscular HGB Conc 33.7 g/dL (31.6-35.5); Mean Corpuscular Hemoglobin 29.4 pg (28.0-33.3); Mean Corpuscular Volume 87.1 fL (83.0-100.0); Mean Platelet Volume 10.3 fL (9.4-12.4); Monocytes # 0.7 K/mcL (0.0-1.3); Monocytes % 6.3 %; Neutrophils # 5.2 K/mcL (1.6-8.9); Platelet Count 401 K/mcL (140-400); Red Blood Count 3.95 M/mcL (3.82-4.97); Red Cell Distribution Width 12.7 % (11.5-14.5); Segmented Neutrophils % 48.7 %; White Blood Count 10.7 K/mcL (4.3-11.1)
[2021-09-21 00:42] LABS: Amphetamine Screen,Urine Positive ng/mL (Cutoff=1000); Barbiturate Screen,Urine Negative ng/mL (Cutoff=200); Benzodiazepines Screen,Urine Negative ng/mL (Cutoff=200); Cannabinoid Screen,Urine Negative ng/mL (Cutoff = 50); Cocaine Screen,Urine Negative ng/mL (Cutoff= 300); Opiate Screen,Urine Negative ng/mL (Cutoff=300); Phencyclidine Screen,Urine Negative ng/mL (Cutoff=25)
[2021-09-21 00:47] LABS: Acetaminophen < 10 mcg/mL (10-20); BUN/Creatinine Ratio 31 (6-26); Blood Urea Nitrogen 24 mg/dL (6-20); Carbon Dioxide 24 mEq/L (23-29); Chloride 106 mEq/L (98-107); Ethanol < 10 mg/dL (Less than 10); Glucose 101 mg/dL (70-105); Osmolality,Calculated 288 (280-300); Potassium 3.8 mEq/L (3.5-5.1); Salicylate < 2.5 mg/dL (15.0-30.0); Sodium 137 mEq/L (136-145); eGFR For African Americans > 60 (> 60); eGFR For Non-African Americans > 60 (> 60)
[2021-09-21 10:01] LABS: Influenza A PCR Negative (Negative); Influenza B PCR Negative (Negative); Resp. Syncytial Virus PCR Negative (Negative)
[2021-09-21 10:07] LABS: SARS-CoV-2 by PCR (In House) Negative (Negative)
[2021-09-21] MEDS ORDERED: *HR* LORazepam 2 MG/ML VIAL IM PRN (10:15)
[2021-09-21] MEDS ORDERED: Ibuprofen 400 MG TABLET PO PRN (10:15)
[2021-09-21] MEDS ORDERED: *HR* LORazepam 1 MG TABLET PO PRN (10:15)
[2021-09-21] MEDS ORDERED: Ziprasidone 20 MG, Closed System Device IM Kit 1 EACH in Water for inj. (sterile) 1 ML IM PRN (10:20)
[2021-09-21] MEDS ORDERED: BuPROPion XL (24 HR) 150 MG TABLET PO PRN (10:38)
[2021-09-21] MEDS ORDERED: *HR* Buprenorphine HCl 8 MG TAB.SUBL SL SCH (13:30)
[2021-09-21] MEDS: *HR* Buprenorphine HCl 8 MG TAB.SUBL SL SCH ×2 (14:03→21:10)
[2021-09-21] MEDS: Nicotine 21 MG PATCH.TD24 TD SCH (14:03)
[2021-09-21] MEDS: ARIPiprazole 5 MG TABLET PO SCH (21:10)
[2021-09-21] MEDS: hydrOXYzine pamoate 25 MG CAPSULE PO PRN (22:24)
[2021-09-21] MEDS: traZODone 50 MG TABLET PO PRN (22:24)
[2021-09-22] MEDS ORDERED: ARIPiprazole 5 MG TABLET PO SCH (09:00)
[2021-09-22] MEDS: *HR* Buprenorphine HCl 8 MG TAB.SUBL SL SCH ×2 (10:03→20:58)
[2021-09-22] MEDS: BuPROPion XL (24 HR) 150 MG TABLET PO SCH (10:04)
[2021-09-22] MEDS: Nicotine 21 MG PATCH.TD24 TD SCH (10:05)
[2021-09-22] MEDS: traZODone 50 MG TABLET PO PRN (20:58)
[2021-09-22] MEDS: hydrOXYzine pamoate 25 MG CAPSULE PO PRN (20:58)
[2021-09-22] MEDS: ARIPiprazole 5 MG TABLET PO SCH (20:58)
[2021-09-23] MEDS: Nicotine 21 MG PATCH.TD24 TD SCH (08:09)
[2021-09-23] MEDS: *HR* Buprenorphine HCl 8 MG TAB.SUBL SL SCH ×2 (08:09→21:09)
[2021-09-23] MEDS: BuPROPion XL (24 HR) 150 MG TABLET PO SCH (08:10)
[2021-09-23] MEDS: hydrOXYzine pamoate 25 MG CAPSULE PO PRN (21:09)
[2021-09-23] MEDS: ARIPiprazole 5 MG TABLET PO SCH (21:09)
[2021-09-24] MEDS: Nicotine 21 MG PATCH.TD24 TD SCH (08:29)
[2021-09-24] MEDS: BuPROPion XL (24 HR) 150 MG TABLET PO SCH (08:30)
[2021-09-24] MEDS: *HR* Buprenorphine HCl 8 MG TAB.SUBL SL SCH (08:30)
[2021-09-24 08:31] VITALS: BP 92/57; PULSE 74; TEMP 98.9; O2SAT 96
== END 2021-09-24 14:50 | disposition home or self-care (01) | DRG 750 ==
LOC: EMEROOARM 23:39 → 1ANU 09-21 10:21
PROVIDERS: ADMIT Psychiatry & Neurology Forensic Psychiatry; ATTEND Psychiatry & Neurology Forensic Psychiatry

== ENCOUNTER 2021-10-26 09:07 | Inpatient (IN) ==
[2021-10-26] MEDS ORDERED: BuPROPion XL (24 HR) 150 MG TABLET PO PRN (09:36)
[2021-10-26] MEDS: *HR* Buprenorphine HCl 2 MG SUBLINGUAL TABLET SL SCH (10:18)
[2021-10-26] MEDS: Nitrofurantoin (BID) 100 MG CAPSULE PO SCH ×2 (10:19→16:46)
[2021-10-26] MEDS: ARIPiprazole 5 MG TABLET PO SCH (11:53)
[2021-10-26] MEDS ORDERED: MOM Conc 10 ML UD.LIQ PO PRN (13:30)
[2021-10-26] MEDS ORDERED: *HR* LORazepam 1 MG TABLET PO PRN (13:30)
[2021-10-26] MEDS ORDERED: Acetaminophen 325 MG TABLET PO PRN (13:30)
[2021-10-26] MEDS ORDERED: Haloperidol Lactate 5 MG/ML VIAL IM PRN (13:30)
[2021-10-26] MEDS ORDERED: Mag Hydrox/Al Hydrox/Simeth 30 ML UDC PO PRN (13:30)
[2021-10-26] MEDS ORDERED: *HR* LORazepam 2 MG/ML VIAL IM PRN (13:30)
[2021-10-26] MEDS ORDERED: haloperidoL 5 MG TABLET PO PRN (13:30)
[2021-10-26] MEDS: Nicotine 21 MG PATCH.TD24 TD SCH (17:56)
[2021-10-26] MEDS: BuPROPion SR (12 HR) 100 MG TABLET PO SCH (21:22)
[2021-10-26] MEDS: QUEtiapine Fumarate 25 MG TABLET PO PRN (21:23)
[2021-10-27] MEDS: Nicotine 21 MG PATCH.TD24 TD SCH (08:52)
[2021-10-27] MEDS: BuPROPion SR (12 HR) 100 MG TABLET PO SCH ×2 (08:53→20:40)
[2021-10-27] MEDS: *HR* Buprenorphine HCl 2 MG SUBLINGUAL TABLET SL SCH (08:53)
[2021-10-27] MEDS: ARIPiprazole 5 MG TABLET PO SCH (08:53)
[2021-10-27] MEDS: Nitrofurantoin (BID) 100 MG CAPSULE PO SCH ×2 (08:56→16:56)
[2021-10-27] MEDS: QUEtiapine Fumarate 25 MG TABLET PO PRN (20:40)
[2021-10-28] MEDS: BuPROPion SR (12 HR) 100 MG TABLET PO SCH ×2 (08:51→21:03)
[2021-10-28] MEDS: ARIPiprazole 5 MG TABLET PO SCH (08:51)
[2021-10-28] MEDS: *HR* Buprenorphine HCl 2 MG SUBLINGUAL TABLET SL SCH (08:52)
[2021-10-28] MEDS: Nitrofurantoin (BID) 100 MG CAPSULE PO SCH ×2 (08:52→18:19)
[2021-10-28] MEDS: Nicotine 21 MG PATCH.TD24 TD SCH (08:52)
[2021-10-28] MEDS: hydrOXYzine pamoate 25 MG CAPSULE PO PRN (21:03)
[2021-10-28] MEDS: QUEtiapine Fumarate 25 MG TABLET PO PRN (21:03)
[2021-10-29] MEDS: Nicotine 21 MG PATCH.TD24 TD SCH (09:03)
[2021-10-29] MEDS: Nitrofurantoin (BID) 100 MG CAPSULE PO SCH ×2 (09:04→16:19)
[2021-10-29] MEDS: ARIPiprazole 5 MG TABLET PO SCH (09:04)
[2021-10-29] MEDS: BuPROPion SR (12 HR) 100 MG TABLET PO SCH ×2 (09:04→20:37)
[2021-10-29] MEDS: *HR* Buprenorphine HCl 2 MG SUBLINGUAL TABLET SL SCH (09:04)
[2021-10-29] MEDS: QUEtiapine Fumarate 25 MG TABLET PO PRN (20:37)
[2021-10-29] MEDS: hydrOXYzine pamoate 25 MG CAPSULE PO PRN (20:37)
[2021-10-30 08:28] VITALS: BP 134/100; PULSE 84; TEMP 97.9; O2SAT 99
[2021-10-30] MEDS: Nitrofurantoin (BID) 100 MG CAPSULE PO SCH (09:02)
[2021-10-30] MEDS: Nicotine 21 MG PATCH.TD24 TD SCH (09:02)
[2021-10-30] MEDS: BuPROPion SR (12 HR) 100 MG TABLET PO SCH (09:02)
[2021-10-30] MEDS: *HR* Buprenorphine HCl 2 MG SUBLINGUAL TABLET SL SCH (09:02)
[2021-10-30] MEDS: ARIPiprazole 5 MG TABLET PO SCH (09:02)
[2021-10-30] MEDS ORDERED: traZODone 50 MG TABLET PO PRN (10:00)
== END 2021-10-30 13:50 | disposition home or self-care (01) | DRG 751 ==
LOC: EMEROOARM 09:07 → 1ANU 12:01
PROVIDERS: ADMIT Psychiatry & Neurology Psychiatry; ATTEND Psychiatry & Neurology Psychiatry

== ENCOUNTER 2022-02-28 23:34 | Inpatient (IN) ==
[2022-03-01] MEDS ORDERED: *HR* LORazepam 2 MG/ML VIAL IM ONE (01:22)
[2022-03-01 01:31] LABS: Influenza A PCR Negative (Negative); Influenza B PCR Negative (Negative); Resp. Syncytial Virus PCR Negative (Negative)
[2022-03-01 01:33] LABS: SARS-CoV-2 by PCR (In House) Negative (Negative)
[2022-03-01] MEDS ORDERED: *HR* LORazepam 2 MG/ML VIAL IM PRN (04:25)
[2022-03-01] MEDS ORDERED: *HR* LORazepam 1 MG TABLET PO PRN (04:25)
[2022-03-01] MEDS ORDERED: chlorproMAZINE 25 MG TABLET PO PRN (05:13)
[2022-03-01] MEDS ORDERED: ChlorproMAZINE 25 MG/ML AMPUL IM PRN (05:16)
[2022-03-01] MEDS ORDERED: MOM Conc 10 ML UD.LIQ PO PRN (08:02)
[2022-03-01] MEDS ORDERED: Mag Hydrox/Al Hydrox/Simeth 30 ML UDC PO PRN (08:02)
[2022-03-01] MEDS: ARIPiprazole 10 MG TABLET PO SCH (13:13)
[2022-03-01] MEDS: *HR* Buprenorphine HCl 8 MG TAB.SUBL SL SCH ×2 (13:13→21:16)
[2022-03-01] MEDS: BuPROPion XL (24 HR) 150 MG TABLET PO SCH (13:14)
[2022-03-01] MEDS: Nicotine 21 MG PATCH.TD24 TD SCH (21:16)
[2022-03-02] MEDS: ARIPiprazole 10 MG TABLET PO SCH (09:25)
[2022-03-02] MEDS: BuPROPion XL (24 HR) 150 MG TABLET PO SCH (09:26)
[2022-03-02] MEDS: *HR* Buprenorphine HCl 8 MG TAB.SUBL SL SCH ×2 (09:26→21:05)
[2022-03-02] MEDS: Nicotine 21 MG PATCH.TD24 TD SCH (09:26)
[2022-03-02] MEDS: hydrOXYzine pamoate 25 MG CAPSULE PO PRN (21:05)
[2022-03-03] MEDS: traZODone 50 MG TABLET PO PRN ×2 (00:13→20:11)
[2022-03-03] MEDS: Ibuprofen 400 MG TABLET PO PRN ×3 (00:13→19:52)
[2022-03-03] MEDS: Nicotine 21 MG PATCH.TD24 TD SCH (10:45)
[2022-03-03] MEDS: ARIPiprazole 10 MG TABLET PO SCH (10:45)
[2022-03-03] MEDS: BuPROPion XL (24 HR) 150 MG TABLET PO SCH (10:45)
[2022-03-03] MEDS: *HR* Buprenorphine HCl 8 MG TAB.SUBL SL SCH ×2 (10:45→20:11)
[2022-03-03] MEDS: hydrOXYzine pamoate 25 MG CAPSULE PO PRN (20:11)
[2022-03-04] MEDS: BuPROPion XL (24 HR) 150 MG TABLET PO SCH (09:01)
[2022-03-04] MEDS: *HR* Buprenorphine HCl 8 MG TAB.SUBL SL SCH (09:01)
[2022-03-04] MEDS: Nicotine 21 MG PATCH.TD24 TD SCH (09:01)
[2022-03-04] MEDS: ARIPiprazole 10 MG TABLET PO SCH (09:01)
[2022-03-04 10:40] VITALS: BP 88/67; PULSE 87; TEMP 97.3; O2SAT 99
== END 2022-03-04 12:06 | disposition home or self-care (01) | DRG 776 ==
LOC: EMEROOARM 23:34 → 1ANU 03-01 04:27
PROVIDERS: ADMIT Psychiatry & Neurology Psychiatry; ATTEND Psychiatry & Neurology Psychiatry

== ENCOUNTER 2022-04-29 17:37 | Inpatient (IN) ==
[2022-04-29 18:56] LABS: Basophils % 0.3 %; Eosinophils # 0.2 K/mcL (0.0-0.6); Eosinophils % 1.7 %; Hematocrit 42.1 % (35.3-44.9); Immature Granulocytes % 0.3 % (0-4); Lymphocytes # 2.5 K/mcL (0.6-4.6); Lymphocytes % 28.2 %; Mean Corpuscular HGB Conc 32.5 g/dL (31.6-35.5); Mean Corpuscular Hemoglobin 28.9 pg (28.0-33.3); Mean Corpuscular Volume 88.8 fL (83.0-100.0); Mean Platelet Volume 9.9 fL (9.4-12.4); Monocytes # 0.6 K/mcL (0.0-1.3); Monocytes % 6.6 %; Neutrophils # 5.5 K/mcL (1.6-8.9); Platelet Count 378 K/mcL (140-400); Red Blood Count 4.74 M/mcL (3.82-4.97); Red Cell Distribution Width 13.1 % (11.5-14.5); Segmented Neutrophils % 62.9 %; White Blood Count 8.8 K/mcL (4.3-11.1)
[2022-04-29 18:57] LABS: Hemoglobin 13.7 g/dL (11.5-15.4)
[2022-04-29 19:07] LABS: Amphetamine Screen,Urine Positive ng/mL (Cutoff=1000); Barbiturate Screen,Urine Negative ng/mL (Cutoff=200); Benzodiazepines Screen,Urine Negative ng/mL (Cutoff=200); Cannabinoid Screen,Urine Negative ng/mL (Cutoff = 50); Cocaine Screen,Urine Negative ng/mL (Cutoff= 300); Opiate Screen,Urine Negative ng/mL (Cutoff=300); Phencyclidine Screen,Urine Negative ng/mL (Cutoff=25)
[2022-04-29 19:11] LABS: Bacteria,Urine Few per hpf (None-Few); Bilirubin,Urine Negative (Negative); Blood,Urine Negative (Negative); Clarity,Urine Turbid (Clear); Color,Urine Light-Yellow (Yellow); Glucose,Urine (UA) Normal (Normal); Ketones,Urine Negative (Negative); Leukocyte Esterase,Urine Moderate (Negative); Mucus,Urine Few per lpf (None-Few); Nitrite,Urine Positive (Negative); PH,Urine 6.5 pH Units (5.0-8.0); Protein,Urine Negative (Neg-Trace); RBC,Urine 0-3 per hpf (0-3); Squamous Epithelial Cell,Urine Moderate per hpf (None-Few); Urobilinogen,Urine Normal (Normal); WBC,Urine 0-3 per hpf (0-3)
[2022-04-29 19:15] LABS: Estimated Average Glucose 111 mg/dl; Hemoglobin A1C 5.5 %
[2022-04-29 19:17] LABS: Acetaminophen < 10 mcg/mL (10-20); BUN/Creatinine Ratio 12 (6-26); Blood Urea Nitrogen 10 mg/dL (6-20); Calcium 9.3 mg/dL (8.6-10.3); Carbon Dioxide 28 mEq/L (23-29); Chloride 104 mEq/L (98-107); Chol/HDL Ratio 2.7 (0-4.9); Cholesterol 146 mg/dL (< 200); Ethanol < 10 mg/dL (Less than 10); Glucose 92 mg/dL (70-105); HDL Cholesterol 55 mg/dL (40-59); LDL Cholesterol,Calculated 62 mg/dL (< 100); Osmolality,Calculated 283 (280-300); Potassium 3.4 mEq/L (3.5-5.1); Salicylate < 2.5 mg/dL (15.0-30.0); Sodium 137 mEq/L (136-145); Triglycerides 145 mg/dL (< 150); eGFR For African Americans > 60 (> 60); eGFR For Non-African Americans > 60 (> 60)
[2022-04-29] MEDS ORDERED: Nitrofurantoin (BID) 100 MG CAPSULE PO STA (19:27)
[2022-04-29] MEDS ORDERED: hydrOXYzine pamoate 25 MG CAPSULE PO ONE (22:06)
[2022-04-29] MEDS ORDERED: QUEtiapine Fumarate 25 MG TABLET PO PRN (22:52)
[2022-04-29] MEDS ORDERED: *HR* LORazepam 2 MG/ML VIAL IM PRN (22:52)
[2022-04-29] MEDS ORDERED: ChlorproMAZINE 25 MG/ML AMPUL IM PRN (23:09)
[2022-04-29] MEDS ORDERED: chlorproMAZINE 25 MG TABLET PO PRN (23:10)
[2022-04-29] MEDS ORDERED: *HR* LORazepam 1 MG TABLET PO PRN (23:12)
[2022-04-29] MEDS ORDERED: traZODone 50 MG TABLET PO PRN (23:12)
[2022-04-29 23:50] LABS: Influenza A PCR Negative (Negative); Influenza B PCR Negative (Negative); Resp. Syncytial Virus PCR Negative (Negative)
[2022-04-29 23:51] LABS: SARS-CoV-2 by PCR (In House) Negative (Negative)
[2022-04-30] MEDS: Ibuprofen 400 MG TABLET PO PRN (01:54)
[2022-04-30] MEDS: cloNIDine HCL 0.1 MG TABLET PO SCH ×2 (01:55→22:11)
[2022-04-30] MEDS ORDERED: MOM Conc 10 ML UD.LIQ PO PRN (08:00)
[2022-04-30] MEDS ORDERED: Mag Hydrox/Al Hydrox/Simeth 30 ML UDC PO PRN (08:00)
[2022-04-30] MEDS: Nitrofurantoin (BID) 100 MG CAPSULE PO SCH ×2 (08:31→18:27)
[2022-04-30] MEDS: BuPROPion XL (24 HR) 150 MG TABLET PO SCH (09:55)
[2022-04-30] MEDS: ARIPiprazole 10 MG TABLET PO SCH (09:56)
[2022-04-30] MEDS ORDERED: *HR* Buprenorphine HCl 8 MG TAB.SUBL SL SCH (10:45)
[2022-04-30] MEDS: Nicotine 21 MG PATCH.TD24 TD SCH (12:18)
[2022-04-30] MEDS: hydrOXYzine pamoate 25 MG CAPSULE PO PRN (22:10)
[2022-05-01] MEDS: BuPROPion XL (24 HR) 150 MG TABLET PO SCH (09:21)
[2022-05-01] MEDS: Nicotine 21 MG PATCH.TD24 TD SCH (09:21)
[2022-05-01] MEDS: *HR* Buprenorphine HCl 8 MG TAB.SUBL SL SCH ×2 (09:22→21:27)
[2022-05-01] MEDS: ARIPiprazole 10 MG TABLET PO SCH (09:22)
[2022-05-01] MEDS: Nitrofurantoin (BID) 100 MG CAPSULE PO SCH ×2 (09:22→17:08)
[2022-05-01] MEDS: cloNIDine HCL 0.1 MG TABLET PO SCH (21:27)
[2022-05-01] MEDS: hydrOXYzine pamoate 25 MG CAPSULE PO PRN (21:27)
[2022-05-02] MEDS: Nicotine 21 MG PATCH.TD24 TD SCH (10:07)
[2022-05-02] MEDS: ARIPiprazole 10 MG TABLET PO SCH (10:08)
[2022-05-02] MEDS: Nitrofurantoin (BID) 100 MG CAPSULE PO SCH ×2 (10:08→16:04)
[2022-05-02] MEDS: BuPROPion XL (24 HR) 150 MG TABLET PO SCH (10:08)
[2022-05-02] MEDS: *HR* Buprenorphine HCl 8 MG TAB.SUBL SL SCH ×2 (10:09→21:28)
[2022-05-02] MEDS: Ibuprofen 400 MG TABLET PO PRN (21:28)
[2022-05-02] MEDS: hydrOXYzine pamoate 25 MG CAPSULE PO PRN (21:30)
[2022-05-02] MEDS: cloNIDine HCL 0.1 MG TABLET PO SCH (21:52)
[2022-05-03] MEDS: BuPROPion XL (24 HR) 150 MG TABLET PO SCH (08:59)
[2022-05-03] MEDS: Nitrofurantoin (BID) 100 MG CAPSULE PO SCH (08:59)
[2022-05-03] MEDS: Nicotine 21 MG PATCH.TD24 TD SCH (08:59)
[2022-05-03] MEDS: ARIPiprazole 10 MG TABLET PO SCH (08:59)
[2022-05-03] MEDS: *HR* Buprenorphine HCl 8 MG TAB.SUBL SL SCH (09:00)
[2022-05-03 09:40] VITALS: BP 92/65; PULSE 105; TEMP 98.5; O2SAT 100
== END 2022-05-03 16:45 | disposition home or self-care (01) | DRG 773 ==
LOC: EMEROOARM 17:37 → SUATTDRO 04-30 00:19 → 1ANU 04-30 00:19
PROVIDERS: ADMIT Psychiatry & Neurology Psychiatry; ATTEND Psychiatry & Neurology Forensic Psychiatry